=== PATIENT | female | born 1940 | race Caucasian/White ===

== ENCOUNTER 2017-12-10 04:25 | Emergency (ER) | payer MEDICARE ==
[~2017-12-10] VITALS: Ht 165.1 cm; Wt 81.6 kg
--- NOTE | 2017-12-10 05:05 | PHYS DOC ---
Past Medical History Past Medical History: Diabetes-Type II, High Cholesterol, Hypertension Additional Past Medical Histor: alzheimer's Past Surgical History: No Surgical History Alcohol Use: None Drug Use: None Adult General Chief Complaint Chief Complaint: WRIST PAIN HPI HPI Patient is a 77 year old female with a past medical history of Alzheimer's disease, visual hallucinations, diabetes mellitus type 2, hyperlipidemia, hypertension who presents after a fall. Patient awoke from sleep and was having hallucinations as she had been having all night and attempted to get out of bed and fell. Patient denies hitting her head, or loss of consciousness. Patient denies vomiting or trouble with ambulation or change in mental status since the fall. The patient's daughter found the patient sitting next to the bed upright complaining of left wrist pain. Patient notes she has had constant sharp last wrist pain with a severity of 8 out of 10 since fall. Patient is unable to move the wrist due to pain. Patient denies any dizziness, headache, neck pain, chest pain, syncope, shortness of breath, abdominal pain, pleuritic pain, or extremity pain other than the left wrist. Review of Systems Review of Systems Constitutional: Denies fever or chills [] Eyes: Denies change in visual acuity, redness, or eye pain [] HENT: Denies nasal congestion or sore throat [] Respiratory: Denies cough or shortness of breath [] Cardiovascular: No additional information not addressed in HPI [] GI: Denies abdominal pain, nausea, vomiting, bloody stools or diarrhea [] : Denies dysuria or hematuria [] Musculoskeletal: Denies back pain or joint pain [] Integument: Denies rash or skin lesions [] Neurologic: Denies headache, focal weakness or sensory changes [] Endocrine: Denies polyuria or polydipsia [] Complete systems were reviewed and found to be within normal limits, except as documented in this note. Family History Family History Noncontributory Current Medications Current Medications Current Medications Medications (Trade) Dose Ordered Sig/Fredrick Start Time Stop Time Status Last Admin Dose Admin Etomidate (Amidate) 10 mg 1X ONCE 12/10/17 05:30 12/10/17 05:31 DC Fentanyl Citrate (Fentanyl 2ml Vial) 100 mcg 1X ONCE 12/10/17 05:30 12/10/17 05:31 DC 12/10/17 05:48 100 MCG Sodium Chloride 1,000 ml @ 1,000 mls/hr 1X ONCE 12/10/17 05:30 12/10/17 06:29 DC 12/10/17 05:33 1,000 MLS/HR Allergies Allergies Allergies Coded Allergies Type Severity Reaction Last Updated Verified No Known Drug Allergies 12/10/17 No Physical Exam Physical Exam Constitutional: Well developed, well nourished, no acute distress, non-toxic appearance. [] HENT: Normocephalic, atraumatic, oropharynx moist, no oral exudates, nose normal. [] Eyes: PERRL, EOMI, conjunctiva normal, no discharge. [] Neck: Normal range of motion, no tenderness, supple, no meningismus. [] Cardiovascular:Heart rate regular rhythm, systolic murmur[] Lungs & Thorax: Bilateral breath sounds clear to auscultation [] Abdomen: Bowel sounds normal, soft, no tenderness. [] Skin: Warm, dry, no erythema, no rash. [] Back: No tenderness, no CVA tenderness. [] Extremities: Left wrist mildly edematous, decreased range of motion due to pain , left snuffbox tenderness. Mild tenderness in base of the second through fourth metacarpal bones. No tenderness in any fingers of left hand. Patient neurovascularly intact in the left hand. Patient able to move all digits of left hand. Right upper extremity and bilateral lower extremities full painful range of motion with intact sensation, normal perfusion, normal muscle strength. [] Neurologic: Alert and oriented X 3, normal motor function, normal sensory function, no focal deficits noted. [] Psychologic: Affect normal, mood normal. [] Current Patient Data Vital Signs Vital Signs Date Time Temp Pulse Resp B/P (MAP) Pulse Ox O2 Delivery O2 Flow Rate FiO2 12/10/17 05:48 18 96 Room Air 12/10/17 04:25 98.3 76 153/70 (97) 98.3 EKG EKG [] Radiology/Procedures Radiology/Procedures [] Course & Med Decision Making Course & Med Decision Making Pertinent Labs and Imaging studies reviewed. (See chart for details) [] Dragon Disclaimer Dragon Disclaimer This electronic medical record was generated, in whole or in part, using a voice recognition dictation system. Departure Departure Impression: Primary Impression: Distal radius fracture, left Disposition: 01 HOME, SELF-CARE Condition: STABLE Referrals: CHAS STACY MD (PCP) MENDY SANZ MD Patient Instructions: Radius Fracture with Rehab-SportsMed, Sedation, Moderate , Adult Scripts Acetaminophen With Codeine (TYLENOL WITH CODEINE #3 TABLET) 1 Each Tablet 1 TAB PO PRN Q6HRS PRN for PAIN, #14 TAB Prov: PERCY QUISPE DO 12/10/17 Problem Qualifiers Primary Impression: Distal radius fracture, left Encounter type: initial encounter Fracture type: closed Fracture morphology : unspecified fracture morphology Qualified Codes: S52.502A - Unspecified fracture of the lower end of left radius, initial encounter for closed fracture PERCY QUISPE DO Dec 10, 2017 05:05
[2017-12-10] MEDS ORDERED: IV NORMAL SALINE 1000ML BAG 1,000 ML IV ONE (05:30)
[2017-12-10] MEDS ORDERED: fentaNYL PF VIAL 100 MCG/2 ML VIAL IV ONE (05:30)
[2017-12-10] MEDS ORDERED: ETOMIDATE 20 MG/10 ML VIAL. IV ONE (05:30)
[2017-12-10] MEDS ORDERED: ACET-704 PO (06:44)
[2017-12-10 07:15] VITALS: BP 135/61
--- NOTE | 2017-12-10 07:40 | RAD ---
Portable left wrist, 3 views, 12/10/2017: HISTORY: Fall, wrist pain The bony structures are demineralized. There is a comminuted, impacted fracture of the distal left radius there is mild dorsal displacement and angulation of the distal fracture fragments. A fracture line involves the articular surface of the distal radius. There is a nondisplaced ulnar styloid fracture, probably recent. The carpal bones are intact. IMPRESSION: 1. Comminuted fracture of the distal left radius with intra-articular extension. 2. Ulnar styloid fracture. Electronically signed by: Dudley Escalera MD (12/10/2017 7:37 AM) [facility]
--- NOTE | 2017-12-10 07:42 | RAD ---
Left forearm, 2 views, 12/10/2017: HISTORY: Postreduction evaluation Comparison is made to the wrist exam of earlier in the day. A radiopaque splint is now in place compromising bony detail. Alignment at the fracture site has improved. There is mild residual dorsal angulation of the distal fracture fragments. The ulnar styloid fracture is slightly displaced. Electronically signed by: Dudley Escalera MD (12/10/2017 7:39 AM) [facility]
== END 2017-12-10 07:55 | disposition home or self-care (01) ==
LOC: ER 04:25
DX: S52.502A Unspecified fracture of the lower end of left radius, initial encounter for closed fracture (principal); E78.00 Pure hypercholesterolemia, unspecified; I10 Essential (primary) hypertension; G30.9 Alzheimer's disease, unspecified; F02.80 Dementia in other diseases classified elsewhere, unspecified severity, without behavioral disturbance, psychotic disturbance, mood disturbance, and anxiety; E78.5 Hyperlipidemia, unspecified; E11.8 Type 2 diabetes mellitus with unspecified complications; W06.XXXA Fall from bed, initial encounter; Y93.89 Activity, other specified; Y92.89 Other specified places as the place of occurrence of the external cause; Y99.8 Other external cause status
CPT/HCPCS: 25605; 73090; 73110; 96374; 99285; J3010; J7030; 99152

== ENCOUNTER 2018-07-24 11:56 | Inpatient (IN) | payer MEDICARE ==
[~2018-07-24] VITALS: Ht 167.6 cm; Wt 82.3 kg
[~2018-07-24 11:56] MED LIST: ACET-704 PO
[2018-07-24] MEDS ORDERED: IV NORMAL SALINE 1000ML BAG 1,000 ML IV ONE (12:15)
[2018-07-24 12:49] LABS: BASO % 1 % (0-3); EOS # 0.2 x10^3/uL (0.0-0.7); EOS % 4 % (0-3); HEMATOCRIT 34.2 % (36.0-47.0); LYMPH # 0.9 x10^3/uL (1.0-4.8); LYMPH % 17 % (24-48); MEAN CORPUSCULAR HEMOGLOBIN 29 pg (25-35); MEAN CORPUSCULAR HGB CONC 32 g/dL (31-37); MEAN CORPUSCULAR VOLUME 90 fL (79-100); MONO # 0.6 x10^3/uL (0.0-1.1); MONO % 13 % (0-9); NEUT # 3.3 x10^3uL (1.8-7.7); NEUT % 65 % (31-73); PLATELET COUNT 204 x10^3/uL (140-400); RED BLOOD COUNT 3.78 x10^6/uL (3.50-5.40); RED CELL DISTRIBUTION WIDTH 16.8 % (11.5-14.5)
[2018-07-24 12:51] LABS: BILIRUBIN,URINE NEGATIVE (NEG); CLARITY,URINE CLEAR; COLOR,URINE YELLOW; NITRITE,URINE NEGATIVE (NEG); PH,URINE 7.5; PROTEIN,URINE 100 mg/dL (NEG-TRACE)
[2018-07-24] MEDS ORDERED: fentaNYL PF VIAL 100 MCG/2 ML VIAL IV ONE (13:00)
[2018-07-24 13:01] LABS: CALCIUM 9.3 mg/dL (8.5-10.1); CREATININE 1.6 mg/dL (0.6-1.0); POTASSIUM 4.7 mmol/L (3.5-5.1)
[2018-07-24 13:05] LABS: SQUAMOUS EPITHELIAL CELL,UR FEW /LPF
[2018-07-24 13:06] LABS: BACTERIA,URINE 0 /HPF (0-FEW); HYALINE CASTS, URINE MODERATE /HPF; RBC,URINE >40 /HPF (0-2); WBC,URINE 0 /HPF (0-4)
[2018-07-24 13:07] LABS: ALBUMIN 3.7 g/dL (3.4-5.0); ALBUMIN/GLOBULIN RATIO 0.8 (1.0-1.7); TOTAL BILIRUBIN 0.5 mg/dL (0.2-1.0); TOTAL PROTEIN 8.1 g/dL (6.4-8.2)
[2018-07-24] MEDS: MEROPENEM 1 GM in IV NORMAL SALINE 100ML 100 ML IV SCH (14:03)
--- NOTE | 2018-07-24 14:09 | RAD ---
EXAM: Head CT without contrast. HISTORY: Confusion. TECHNIQUE: Computed tomographic images of the head were obtained without contrast. *One or more of the following individualized dose reduction techniques were utilized for this examination: 1. Automated exposure control. 2. Adjustment of the mA and/or kV according to patient size. 3. Use of iterative reconstruction technique. COMPARISON: 03/05/2015. FINDINGS: There is no acute or subacute extra-axial or intraparenchymal hemorrhage. There is no mass effect or midline shift. There is no hydrocephalus. There are areas of decreased attenuation within the cerebral white matter, nonspecific and likely related to chronic small vessel disease. There is fluid within the left mastoid air cells. The paranasal sinuses and orbits are unremarkable. No suspicious calvarial lesion is seen. IMPRESSION: 1. No acute intracranial finding. Note is made that MRI is more sensitive for acute infarction. 2. Decreased attenuation within the cerebral white matter, likely due to chronic small vessel disease. Electronically signed by: Yanna Marinelli MD (07/24/2018 2:06 PM) [facility]
[2018-07-24] MEDS ORDERED: fentaNYL PF VIAL 100 MCG/2 ML VIAL IV PRN (14:30)
[2018-07-24] MEDS ORDERED: ONDANSETRON PF 4 MG/2 ML VIAL. IV PRN (14:30)
--- NOTE | 2018-07-24 14:30 | PDOC1 ---
History and Physical Date of Admission Date of Admission DATE: 07/24/18 TIME: 14:30 Identification/Chief Complaint Chief Complaint Patient is a 78 year old female who presents with altered level of consciousness is been worsening over the past day. The patient was being treated for UTI on Rocephin while awaiting results of her urine culture. She was gradually worsening over the past week. Her primary care provider, Dr. Darren herron, called and gave report to the emergency department. The patient's daughter brought her to the emergency department for further evaluation and treatment. They deny fever, nausea or vomiting. The patient does have dementia but has worsened from her baseline and today has been nonverbal. was able to talk to daughter in er room Past Medical History Past Medical History Past Medical History Past Medical History: Diabetes-Type II, High Cholesterol, Hypertension Additional Past Medical Histor: alzheimer's Past Surgical History: No Surgical History Alcohol Use: None Drug Use: None family hx obesity Family History Family History: Diabetes, High Cholestrol, Hypertension Social History Smoke: No ALCOHOL: none Drugs: None Current Medications Current Medications Current Medications Sodium Chloride 1,000 ml @ 1,000 mls/hr 1X ONCE IV Last administered on 07/24/18at 12:37; Start 07/24/18 at 12:15; Stop 07/24/18 at 13:14; Status DC Fentanyl Citrate (Fentanyl 2ml Vial) 50 mcg 1X ONCE IV Last administered on 07/24/18at 13:05; Start 07/24/18 at 13:00; Stop 07/24/18 at 13:04; Status DC Meropenem 1 gm/ Sodium Chloride 100 ml @ 200 mls/hr Q12H IV Last administered on 07/24/18at 14:03; Start 07/24/18 at 14:00 Ondansetron HCl (Zofran) 4 mg PRN Q8HRS PRN IV NAUSEA/VOMITING; Start 07/24/18 at 14:30; Stop 07/25/18 at 14:29 Fentanyl Citrate (Fentanyl 2ml Vial) 50 mcg PRN Q1HR PRN IV PAIN; Start 07/24/18 at 14:30; Stop 07/25/18 at 14:29 Sodium Chloride 1,000 ml @ 125 mls/hr Q8H IV ; Start 07/24/18 at 14:20; Stop 07/25/18 at 14:19 Active Scripts Active Tylenol With Codeine #3 Tablet (Acetaminophen/Codeine Phosphate) 1 Each Tablet 1 Tab PO PRN Q6HRS PRN Allergies Allergies: Coded Allergies: No Known Drug Allergies (Unverified , 12/10/17) ROS Review of System Review of Systems Review of Systems Constitutional: Denies fever or chills [] Eyes: Denies change in visual acuity, redness, or eye pain [] HENT: Denies nasal congestion or sore throat [] Respiratory: Denies cough or shortness of breath [] Cardiovascular: No additional information not addressed in HPI [] GI: Denies abdominal pain, nausea, vomiting, bloody stools or diarrhea [] : See history of present illness Musculoskeletal: Denies back pain or joint pain [] Integument: Denies rash or skin lesions [] Neurologic: Denies headache, focal weakness or sensory changes [] Endocrine: Denies polyuria or polydipsia [] 14 pt systems were reviewed and found to be within normal limits, except as documented, daughter is interperter in er room Physical Exam Physical Exam Physical Exam Physical Exam Constitutional: Well developed, well nourished, mild acute distress, non-toxic appearance. [] Neck: Normal range of motion, no tenderness, supple, no stridor. [] Cardiovascular:Heart rate regular rhythm, no murmur [] Lungs & Thorax: Bilateral breath sounds clear to auscultation [] Abdomen: Bowel sounds normal, soft, no tenderness, no masses, no pulsatile masses. [] Skin: Warm, dry, no erythema, no rash. [] Back: No tenderness, no CVA tenderness. [] Extremities: No tenderness, no cyanosis, no clubbing, ROM intact, no edema. [] Neurologic: normal motor function, normal sensory function, no focal deficits noted. [] Psychologic: Affect normal, judgement poor, mood anxious. [] Breasts: Not examined Abdomen: Normal bowel sounds, Soft Rectal Exam: not examined Neuro: Cranial nerves 3-12 NL Vitals Vitals Vital Signs Date Time Temp Pulse Resp B/P (MAP) Pulse Ox O2 Delivery O2 Flow Rate FiO2 07/24/18 13:05 20 96 Room Air 07/24/18 12:00 98.2 78 125/85 (98) 98.2 Labs Labs Laboratory Tests Test 07/24/18 12:25 White Blood Count 5.0 x10^3/uL (4.0-11.0) Red Blood Count 3.78 x10^6/uL (3.50-5.40) Hemoglobin 11.0 g/dL (12.0-15.5) Hematocrit 34.2 % (36.0-47.0) Mean Corpuscular Volume 90 fL (79-100) Mean Corpuscular Hemoglobin 29 pg (25-35) Mean Corpuscular Hemoglobin Concent 32 g/dL (31-37) Red Cell Distribution Width 16.8 % (11.5-14.5) Platelet Count 204 x10^3/uL (140-400) Neutrophils (%) (Auto) 65 % (31-73) Lymphocytes (%) (Auto) 17 % (24-48) Monocytes (%) (Auto) 13 % (0-9) Eosinophils (%) (Auto) 4 % (0-3) Basophils (%) (Auto) 1 % (0-3) Neutrophils # (Auto) 3.3 x10^3uL (1.8-7.7) Lymphocytes # (Auto) 0.9 x10^3/uL (1.0-4.8) Monocytes # (Auto) 0.6 x10^3/uL (0.0-1.1) Eosinophils # (Auto) 0.2 x10^3/uL (0.0-0.7) Basophils # (Auto) 0.0 x10^3/uL (0.0-0.2) Urine Collection Type U cath Urine Color Yellow Urine Clarity Clear Urine pH 7.5 Urine Specific [place] 1.020 Urine Protein 100 mg/dL (NEG-TRACE) Urine Glucose (UA) Negative mg/dL (NEG) Urine Ketones (Stick) Negative mg/dL (NEG) Urine Blood Large (NEG) Urine Nitrite Negative (NEG) Urine Bilirubin Negative (NEG) Urine Urobilinogen Dipstick 1.0 mg/dL (0.2 mg/dL) Urine Leukocyte Esterase Trace (NEG) Urine RBC >40 /HPF (0-2) Urine WBC 0 /HPF (0-4) Urine Squamous Epithelial Cells Few /LPF Urine Bacteria 0 /HPF (0-FEW) Urine Hyaline Casts Moderate /HPF Urine Mucus Slight /LPF Sodium Level 137 mmol/L (136-145) Potassium Level 4.7 mmol/L (3.5-5.1) Chloride Level 99 mmol/L (98-107) Carbon Dioxide Level 32 mmol/L (21-32) Anion Gap 6 (6-14) Blood Urea Nitrogen 35 mg/dL (7-20) Creatinine 1.6 mg/dL (0.6-1.0) Estimated GFR (Cockcroft-Gault) 31.0 BUN/Creatinine Ratio 22 (6-20) Glucose Level 243 mg/dL (70-99) Lactic Acid Level 1.2 mmol/L (0.4-2.0) Calcium Level 9.3 mg/dL (8.5-10.1) Total Bilirubin 0.5 mg/dL (0.2-1.0) Aspartate Amino Transf (AST/SGOT) 18 U/L (15-37) Alanine Aminotransferase (ALT/SGPT) 20 U/L (14-59) Alkaline Phosphatase 90 U/L (46-116) Total Protein 8.1 g/dL (6.4-8.2) Albumin 3.7 g/dL (3.4-5.0) Albumin/Globulin Ratio 0.8 (1.0-1.7) Laboratory Tests Test 07/24/18 12:25 White Blood Count 5.0 x10^3/uL (4.0-11.0) Red Blood Count 3.78 x10^6/uL (3.50-5.40) Hemoglobin 11.0 g/dL (12.0-15.5) Hematocrit 34.2 % (36.0-47.0) Mean Corpuscular Volume 90 fL (79-100) Mean Corpuscular Hemoglobin 29 pg (25-35) Mean Corpuscular Hemoglobin Concent 32 g/dL (31-37) Red Cell Distribution Width 16.8 % (11.5-14.5) Platelet Count 204 x10^3/uL (140-400) Neutrophils (%) (Auto) 65 % (31-73) Lymphocytes (%) (Auto) 17 % (24-48) Monocytes (%) (Auto) 13 % (0-9) Eosinophils (%) (Auto) 4 % (0-3) Basophils (%) (Auto) 1 % (0-3) Neutrophils # (Auto) 3.3 x10^3uL (1.8-7.7) Lymphocytes # (Auto) 0.9 x10^3/uL (1.0-4.8) Monocytes # (Auto) 0.6 x10^3/uL (0.0-1.1) Eosinophils # (Auto) 0.2 x10^3/uL (0.0-0.7) Basophils # (Auto) 0.0 x10^3/uL (0.0-0.2) Urine Collection Type U cath Urine Color Yellow Urine Clarity Clear Urine pH 7.5 Urine Specific [place] 1.020 Urine Protein 100 mg/dL (NEG-TRACE) Urine Glucose (UA) Negative mg/dL (NEG) Urine Ketones (Stick) Negative mg/dL (NEG) Urine Blood Large (NEG) Urine Nitrite Negative (NEG) Urine Bilirubin Negative (NEG) Urine Urobilinogen Dipstick 1.0 mg/dL (0.2 mg/dL) Urine Leukocyte Esterase Trace (NEG) Urine RBC >40 /HPF (0-2) Urine WBC 0 /HPF (0-4) Urine Squamous Epithelial Cells Few /LPF Urine Bacteria 0 /HPF (0-FEW) Urine Hyaline Casts Moderate /HPF Urine Mucus Slight /LPF Sodium Level 137 mmol/L (136-145) Potassium Level 4.7 mmol/L (3.5-5.1) Chloride Level 99 mmol/L (98-107) Carbon Dioxide Level 32 mmol/L (21-32) Anion Gap 6 (6-14) Blood Urea Nitrogen 35 mg/dL (7-20) Creatinine 1.6 mg/dL (0.6-1.0) Estimated GFR (Cockcroft-Gault) 31.0 BUN/Creatinine Ratio 22 (6-20) Glucose Level 243 mg/dL (70-99) Lactic Acid Level 1.2 mmol/L (0.4-2.0) Calcium Level 9.3 mg/dL (8.5-10.1) Total Bilirubin 0.5 mg/dL (0.2-1.0) Aspartate Amino Transf (AST/SGOT) 18 U/L (15-37) Alanine Aminotransferase (ALT/SGPT) 20 U/L (14-59) Alkaline Phosphatase 90 U/L (46-116) Total Protein 8.1 g/dL (6.4-8.2) Albumin 3.7 g/dL (3.4-5.0) Albumin/Globulin Ratio 0.8 (1.0-1.7) Images Images SEX: F EXAM STATUS: REG ER ORD. PHYSICIAN: ALISSA WILLETT APRN REASON: confusion PROCEDURE: CT HEAD WO CONTRAST EXAM: Head CT without contrast. HISTORY: Confusion. TECHNIQUE: Computed tomographic images of the head were obtained without contrast. *One or more of the following individualized dose reduction techniques were utilized for this examination: 1. Automated exposure control. 2. Adjustment of the mA and/or kV according to patient size. 3. Use of iterative reconstruction technique. COMPARISON: 03/05/2015. FINDINGS: There is no acute or subacute extra-axial or intraparenchymal hemorrhage. There is no mass effect or midline shift. There is no hydrocephalus. There are areas of decreased attenuation within the cerebral white matter, nonspecific and likely related to chronic small vessel disease. There is fluid within the left mastoid air cells. The paranasal sinuses and orbits are unremarkable. No suspicious calvarial lesion is seen. IMPRESSION: 1. No acute intracranial finding. Note is made that MRI is more sensitive for acute infarction. 2. Decreased attenuation within the cerebral white matter, likely due to chronic small vessel disease. Electronically signed by: Yanna Watkins MD (07/24/2018 2:06 PM) [facility] DICTATED and SIGNED BY: YANNA WATKINS MD DATE: 07/24/18 1406 VTE Prophylaxis Ordered VTE Prophylaxis Devices: Yes VTE Pharmacological Prophylaxi: Yes Assessment/Plan Assessment/Plan IMPRESSION 1. Acute altered mental status 2. acute metabolic encephalopathy sec UTI 3. UTI 4. hx dementia PLAN CT HEAD IV ANTIBIOTICS, meropenum ID CONSULT DVT PROPHYLAXIS blood cult urine culture dvt prophylaxis MAI PRUITT MD Jul 24, 2018 14:30
--- NOTE | 2018-07-24 15:34 | PHYS DOC ---
Past Medical History Past Medical History: Diabetes-Type II, High Cholesterol, Hypertension Additional Past Medical Histor: alzheimer's (ALISSA WILLETT APRN) Past Surgical History: No Surgical History (ALISSA WILLETT APRN) Alcohol Use: None Drug Use: None (ALISSA WILLETT APRN) Adult General Chief Complaint Chief Complaint: ALTERED MENTAL STATUS HPI HPI Patient is a 78 year old female who presents with altered level of consciousness is been worsening over the past day. The patient was being treated for UTI on Rocephin while awaiting results of her urine culture. She was gradually worsening over the past week. Her primary care provider, Dr. Venkatesh benjamin, called and gave report to the emergency department. The patient's daughter brought her to the emergency department for further evaluation and treatment. They deny fever, nausea or vomiting. The patient does have dementia but has worsened from her baseline and today has been nonverbal. (ALISSA WILLETT APRN) Review of Systems Review of Systems Constitutional: Denies fever or chills [] Eyes: Denies change in visual acuity, redness, or eye pain [] HENT: Denies nasal congestion or sore throat [] Respiratory: Denies cough or shortness of breath [] Cardiovascular: No additional information not addressed in HPI [] GI: Denies abdominal pain, nausea, vomiting, bloody stools or diarrhea [] : See history of present illness Musculoskeletal: Denies back pain or joint pain [] Integument: Denies rash or skin lesions [] Neurologic: Denies headache, focal weakness or sensory changes [] Endocrine: Denies polyuria or polydipsia [] All other systems were reviewed and found to be within normal limits, except as documented in this note. (ALISSA WILLETT APRN) Current Medications Current Medications Current Medications Medications (Trade) Dose Ordered Sig/Fredrick Start Time Stop Time Status Last Admin Dose Admin Fentanyl Citrate (Fentanyl 2ml Vial) 50 mcg 1X ONCE 07/24/18 13:00 07/24/18 13:04 DC 07/24/18 13:05 50 MCG Meropenem 1 gm/ Sodium Chloride 100 ml @ 200 mls/hr Q12H 07/24/18 14:00 07/25/18 13:14 200 MLS/HR Sodium Chloride 1,000 ml @ 1,000 mls/hr 1X ONCE 07/24/18 12:15 07/24/18 13:14 DC 07/24/18 12:37 1,000 MLS/HR (AMARI PHAM MD) Allergies Allergies Allergies Coded Allergies Type Severity Reaction Last Updated Verified No Known Drug Allergies 12/10/17 No (AMARI PHAM MD) Physical Exam Physical Exam Constitutional: Well developed, well nourished, no acute distress, non-toxic appearance. [] Neck: Normal range of motion, no tenderness, supple, no stridor. [] Cardiovascular:Heart rate regular rhythm, no murmur [] Lungs & Thorax: Bilateral breath sounds clear to auscultation [] Abdomen: Bowel sounds normal, soft, no tenderness, no masses, no pulsatile mas ses. [] Skin: Warm, dry, no erythema, no rash. [] Back: No tenderness, no CVA tenderness. [] Extremities: No tenderness, no cyanosis, no clubbing, ROM intact, no edema. [] Neurologic: Alert and oriented X 3, normal motor function, normal sensory function, no focal deficits noted. [] Psychologic: Affect normal, judgement normal, mood normal. [] (ALISSA WILLETT APRN) Current Patient Data Vital Signs Vital Signs Date Time Temp Pulse Resp B/P (MAP) Pulse Ox O2 Delivery O2 Flow Rate FiO2 07/24/18 14:13 82 16 98 07/24/18 13:05 Room Air 07/24/18 12:00 98.2 125/85 (98) 98.2 (AMARI PHAM MD) Lab Values Laboratory Tests Test 07/24/18 12:25 White Blood Count 5.0 x10^3/uL (4.0-11.0) Red Blood Count 3.78 x10^6/uL (3.50-5.40) Hemoglobin 11.0 g/dL (12.0-15.5) L Hematocrit 34.2 % (36.0-47.0) L Mean Corpuscular Volume 90 fL (79-100) Mean Corpuscular Hemoglobin 29 pg (25-35) Mean Corpuscular Hemoglobin Concent 32 g/dL (31-37) Red Cell Distribution Width 16.8 % (11.5-14.5) H Platelet Count 204 x10^3/uL (140-400) Neutrophils (%) (Auto) 65 % (31-73) Lymphocytes (%) (Auto) 17 % (24-48) L Monocytes (%) (Auto) 13 % (0-9) H Eosinophils (%) (Auto) 4 % (0-3) H Basophils (%) (Auto) 1 % (0-3) Neutrophils # (Auto) 3.3 x10^3uL (1.8-7.7) Lymphocytes # (Auto) 0.9 x10^3/uL (1.0-4.8) L Monocytes # (Auto) 0.6 x10^3/uL (0.0-1.1) Eosinophils # (Auto) 0.2 x10^3/uL (0.0-0.7) Basophils # (Auto) 0.0 x10^3/uL (0.0-0.2) Urine Collection Type U cath Urine Color Yellow Urine Clarity Clear Urine pH 7.5 Urine Specific [place] 1.020 Urine Protein 100 mg/dL (NEG-TRACE) Urine Glucose (UA) Negative mg/dL (NEG) Urine Ketones (Stick) Negative mg/dL (NEG) Urine Blood Large (NEG) Urine Nitrite Negative (NEG) Urine Bilirubin Negative (NEG) Urine Urobilinogen Dipstick 1.0 mg/dL (0.2 mg/dL) Urine Leukocyte Esterase Trace (NEG) Urine RBC >40 /HPF (0-2) Urine WBC 0 /HPF (0-4) Urine Squamous Epithelial Cells Few /LPF Urine Bacteria 0 /HPF (0-FEW) Urine Hyaline Casts Moderate /HPF Urine Mucus Slight /LPF Sodium Level 137 mmol/L (136-145) Potassium Level 4.7 mmol/L (3.5-5.1) Chloride Level 99 mmol/L (98-107) Carbon Dioxide Level 32 mmol/L (21-32) Anion Gap 6 (6-14) Blood Urea Nitrogen 35 mg/dL (7-20) H Creatinine 1.6 mg/dL (0.6-1.0) H Estimated GFR (Cockcroft-Gault) 31.0 BUN/Creatinine Ratio 22 (6-20) H Glucose Level 243 mg/dL (70-99) H Lactic Acid Level 1.2 mmol/L (0.4-2.0) Calcium Level 9.3 mg/dL (8.5-10.1) Total Bilirubin 0.5 mg/dL (0.2-1.0) Aspartate Amino Transferase (AST) 18 U/L (15-37) Alanine Aminotransferase (ALT) 20 U/L (14-59) Alkaline Phosphatase 90 U/L (46-116) Total Protein 8.1 g/dL (6.4-8.2) Albumin 3.7 g/dL (3.4-5.0) Albumin/Globulin Ratio 0.8 (1.0-1.7) L Laboratory Tests 07/24/18 12:25 Laboratory Tests 07/24/18 12:25 Microbiology 07/24/18 Blood Culture - Preliminary, Resulted NO GROWTH AFTER 1 DAY (AMARI PHAM MD) EKG EKG [] (ALISSA WILLETT APRN) Radiology/Procedures Radiology/Procedures []PATIENT: MARLENE ARORAOUNT: [id number]#: [id number] : 1940 LOCATION: ER AGE: 78 SEX: F EXAM STATUS: REG ER ORD. PHYSICIAN: ALISSA WILLETT APRN REASON: confusion PROCEDURE: CT HEAD WO CONTRAST EXAM: Head CT without contrast. HISTORY: Confusion. TECHNIQUE: Computed tomographic images of the head were obtained without contrast. *One or more of the following individualized dose reduction techniques were utilized for this examination: 1. Automated exposure control. 2. Adjustment of the mA and/or kV according to patient size. 3. Use of iterative reconstruction technique. COMPARISON: 03/05/2015. FINDINGS: There is no acute or subacute extra-axial or intraparenchymal hemorrhage. There is no mass effect or midline shift. There is no hydrocephalus. There are areas of decreased attenuation within the cerebral white matter, nonspecific and likely related to chronic small vessel disease. There is fluid within the left mastoid air cells. The paranasal sinuses and orbits are unremarkable. No suspicious calvarial lesion is seen. IMPRESSION: 1. No acute intracranial finding. Note is made that MRI is more sensitive for acute infarction. 2. Decreased attenuation within the cerebral white matter, likely due to chronic small vessel disease. Electronically signed by: Yanna Watkins MD (07/24/2018 2:06 PM) [id number] DICTATED and SIGNED BY: YANNA WATKINS MD DATE: 07/24/18 2011 (ALISSA WILLETT APRN) Course & Med Decision Making Course & Med Decision Making Pertinent Labs and Imaging studies reviewed. (See chart for details) []The patient's CT was negative for an acute cause of her symptoms. If she is still positive for a UTI. Her lab results were faxed to the emergency department and her urine is susceptible to all of the carbapenems. She has been started on Merrem in the emergency department. She has been admitted to Dr. Owusu's service. (ALISSA WILLETT APRN) Course & Med Decision Making Staff Physician Addendum: I was working in the ER during the course of this patient's visit. I was available for consultation as needed, but I was not directly involved in the care of this patient. (AMARI PHAM MD) Dragon Disclaimer Dragon Disclaimer This electronic medical record was generated, in whole or in part, using a voice recognition dictation system. (ALISSA WILLETT APRN) Departure Departure Impression: Primary Impression: Altered level of consciousness Additional Impression: Urinary tract infection Disposition: ADMITTED INPATIENT Admitting Physician: Joseph Duncan (ALISSA WILLETT APRN) Condition: GOOD Problem Qualifiers ALISSA WILLETT APRN Jul 24, 2018 15:34 AMARI PHAM MD Jul 25, 2018 18:37
[2018-07-24 15:55] VITALS: BP 133/64
[2018-07-24] MEDS: IV NORMAL SALINE 1000ML BAG 1,000 ML IV SCH ×2 (16:25→22:20)
[2018-07-24] MEDS ORDERED: PIOG15TA42 PO (16:40)
[2018-07-24] MEDS ORDERED: LISI-334 PO (16:41)
[2018-07-24] MEDS ORDERED: DONE10TA7 PO (16:42)
[2018-07-24] MEDS ORDERED: RANI300C PO (16:43)
[2018-07-24] MEDS ORDERED: MEMA10TA PO (16:45)
[2018-07-24] MEDS ORDERED: QUET25TA5 PO (16:47)
[2018-07-24] MEDS ORDERED: FURO20TA3 PO (16:49)
[2018-07-24] MEDS ORDERED: OMEG1CAP38 PO (16:51)
[2018-07-24] MEDS ORDERED: POTA10TA12 PO (16:54)
[2018-07-24] MEDS ORDERED: SIMV20TA3 PO (16:54)
[2018-07-24] MEDS ORDERED: CITA40TA5 PO (16:56)
[2018-07-24] MEDS ORDERED: ASPI-612 PO (16:57)
--- NOTE | 2018-07-24 19:10 | NUR ---
Patient Jessy Zhao 78/F admitted from ED due to complicated UTI. She arrived at the unit at 1550 accompanied by family members. Patient is awake, oriented to self, forgetful, denies any pain. IVF started at 125mL/hr, call light placed within reach. We'll continue to monitor.
[2018-07-24 19:50] VITALS: BP 131/59
[2018-07-24] MEDS ORDERED: DEXTROSE 50% 25 GM / 50ML DISP.SYRIN. IV PRN (20:45)
[2018-07-24] MEDS: SIMVASTATIN 20 MG TABLET PO SCH (21:35)
[2018-07-24] MEDS: MEMANTINE 10 MG TABLET. PO SCH (21:35)
[2018-07-24] MEDS: QUEtiapine 25 MG TABLET. PO SCH (21:35)
[2018-07-24] MEDS: OMEGA-3 FATTY ACIDS/FISH OIL 1,000 MG CAPSULE. PO SCH (21:36)
[2018-07-24] MEDS: CITALOPRAM 20 MG TABLET. PO SCH (22:30)
[2018-07-24 23:13] VITALS: BP 111/39
[2018-07-25] MEDS: MEROPENEM 1 GM in IV NORMAL SALINE 100ML 100 ML IV SCH ×2 (02:01→13:14)
--- NOTE | 2018-07-25 02:58 | PDOC ---
PROGRESS NOTES Subjective Subjective PATIENT INDICATES SHE IS FEELING BETTER. DAUGHTER AT BEDSIDE AND NOTES THAT PATIENT IS DEFINITELY IMPROVED IN BOTH ALERTNESS, GAIT AND DEMENTIA BUT STILL NOT AT BASE LINE. DETERIORATION FROM BASELINE BEGAN Tuesday. DAUGHTER CALLED PATIENT'S PSYCHIATRIST AND ADVISED HER OF THE CHANGE. DR. SHAQUILLE CARRERA MD ADVISED DAUGHTER THAT SHE SHOULD CHECK PATIENT'S URINE WITH PCP. THAT IS HOW SHE ENDED UP IN OUR OFFICE FOR VISIT AND LAB ON 07/20/2018. PATIENT JUST SAW TV AD FOR HAMBURGER [employer] AND NOTED THAT SHE WAS HUNGRY AND WANTED A HAMBURGER (SHE HAS HAD ONLY CLEAR FLUIDS SINCE ADMISSION). COMPLAINING OF ITCHING OF RIGHT LATERAL THIGH AREA. VOICED NEED TO GO TO BATHROOM TO URINATE. Objective Objective Vital Signs Date Time Temp Pulse Resp B/P (MAP) Pulse Ox O2 Delivery O2 Flow Rate FiO2 07/24/18 23:13 98.2 77 18 111/39 (63) 96 Room Air 98.2 Intake and Output 07/25/18 06:59 Intake Total 1220 ml Output Total 300 ml Balance 920 ml Intake Oral 120 ml IV Total 1100 ml Output Urine Total 300 ml # Voids 2 PER ER NOTE PATIENT HAD 1 LITER OF FLUID IN ER AND NEW BAG HUNG PRIOR TO TRANSFER TO FLOOR. HAS THUS COMPLETED 2 LKITERS INDFUSED AND HAS NEW BAG HANGING- #3 BAG. Physical Exam Physical Exam SLEEPING WHEN I ENTERED ROOM, LOOKED IN NAD. AWAKENED SHORTLY AFTER MY DRESSING MACHINE OPERATOR AND I ENTERED AND BEGAN TALKING TO DAUGHTER. SHE GREETED ME ENTHUSIASTICALLY WELL GREETING DRESSING MACHINE OPERATOR. SHE RECOGNIZED BOTH OF US SPONTANEOUSLY. Abdomen: Normal bowel sounds, Soft, No tenderness Heart: Regular rate, Normal S1, Normal S2, Other (CALE GRADE 2 LEFT STERNAL BORDER) Extremities: No clubbing, No cyanosis, No edema, Normal pulses, No tenderness/swelling General: Alert, Cooperative, No acute distress, Other HEENT: Atraumatic, EOMI, Mucous membr. moist/pink Lungs: Clear to auscultation, Normal air movement, Other (SLIGHTLY DECREASED BREATH SOUNDS AT BASES.) MUSCULOSKELETAL: No joint tenderness, No muscular tenderness noted, Other (GAIT WAS UNSTEADY, HOLDING ON TO 2 PEOPLE WITH ONE OF US SPOTTING HER SHE WALKED TO BATHROOM FROM BED. SHUFFLED FEET SLIGHTLY. AFTER URINATING IN STOOL, STOOD UP AND THEN SAID SOMETHING ABOUT THE BABY COMING AND WENT LIMP -DAUGHTER GUIDED HER BACK ONTO THE STOOL AT ADVISE OF DRESSING MACHINE OPERATOR. DAUGHTER AND DRESSING MACHINE OPERATOR BROUGHT HER CHAIR WALKER TO BATHROOM AND HELPED HER TRANSFER ONTO THE CHAIR WALKER AND THEN PATIENT WAS WHEELED TO HER BEDSIDE. PATIENT STOOD UP ON HER OWN BUT SEEMED WEAKER THAN JUST MOMENTS EARLIER, AND PAITNET THEN PLOPPED BACKWARDS ONTO BED. DAUGHTER AND DRESSING MACHINE OPERATOR MOVED HER INTO PROPER POSITION ONCE PATIENT WAS IN BED. PATIENT SEEMED TO MOVE ALL EXTREMITIES EQUALLY WELL) Neck: Supple, No JVD, No thyromegaly, No LAD Neuro: Sensation intact, Cranial nerves 3-12 NL, Other (GAIT ABNORMAL NOTED ABOVE. TONE RELATIVELY NORMAL THEN MUSCLES BECOME LIMP DIRING EPISODE NOTED ) Psych/Mental Status: Other (MENTAL STATUS IMPROVED BUT NOT AT B ASELINE. ORIENTED TO PERSONS IN ROOM BUT ALSO HAS VISUAL AND AUDITORY HALLUCINATIONS OF HER FAMILY MEMBERS AND FRIENDS OFF AND ON THROUGH OUT DAY. ALSO VOICED CONCERN FOR HER GRANDDAUGHTER "GIVING NEXT DOOR"- NOT REALLY OCCURRING, GRANDDAUGHTER NOT EVEN IN HOSPITAL TODAY AND SHE IS DEFINITELY NOT .) Skin: No rashes (AREA SHE IS SCRATCHING ON LATERAL RIGHT THIGH IS CLEAR OF ANY RASH OR DRYNESS.), No significant lesion COMMENT PATIENT ALSO HAS DIAGNOSIS OF CHF. Diagnosis DIAGNOSIS 1. CHANGE IN MENTAL STATUS, LETHARGY, INCREASED HALLUCINATION, AUDITORY AND VISUAL. AND LOC EARLY THIS AM (REASON FOR ER VISIT.) 2. E.COLI UTI ON CULTURE TAKEN Tuesday RESISTENT TO ROCEPHIN AND SENSITIVE TO NUMEROUS IV ANTIBIOTICS- PLEASE SEE RESULTS SENT TO ER FROM THE OFFICE. 3. DEHYDRATION- SECONDARY TO POOR PO INTAKE- (HGB TuesdayJULY 20 AT FIRST 24 HOURS OF HER CHANGE IN MENTAL STATUS WAS 9.4/HCT WAS 30.0. MCHC 31.3. HGB IN ER WAS 11.0 TODAY). 4. ALZHEIMER DEMENTIA WITH lNCREASED HALLUCINATIONS BOTH AUDITORY AND VISUAL SINCE LAST TuesdayJULY 19, 5. HISTORY OF CHF. 6. DIABETES MELLITUS TYPE 2 ( HGB A1C DONE 07/20/18 WAS 8.9) 7. HYPERTENSION-STABLE 8. CHRONIC RENAL INSUFFICIENCY AGGRAVATED BY HER DECREASED FLUIDS- BUN/CREATININE WAS 26/1.22 ON 07/20/18 AND TODAY WAS 35/1.6 IN ER) HYPERTENSION: Benign hypertension HEART FAILURE: CHF (CHRONIC, STABLE AT PRESENT-WILL DECREASE IV FLUID RATE.) DIABETES: Type II (Uncontrolled) RENAL FAILURE: Chronic ANEMIA: Chronic diseases (ESRD), Other SEPSIS: Escherichia coli ( URINE CULTURE FROM 07/20/2018 GREW E.COLI RESISTANT TO ROCEPHIN - REPORTED THIS AM. TREATED 07/20, 07/21/ AND 07/22 WITH 1 GRAM ROCEPHIN PENDING CULTURE RESULTS.) SEVERE SEPSIS: Encephalopathy Assessment Assessment Problems Medical Problems: (1) Altered level of consciousness Status: Acute (2) Urinary tract infection Status: Acute Plan Plan of Care SEE ORDERS. STARTED ON MEROPENUM IV IN ER BASED ON URINE CULTURE RESULTS FROM 07/20/2018. SECOND DOSE GIVEN AT 2AM. CONSULT REQUESTED FROM INFECTIOUS DISEASE AND NEUROLOGY. Comment Review of Relevant I have reviewed the following items ld (where applicable) has been applied. Labs Laboratory Tests Test 07/24/18 12:25 07/24/18 20:32 White Blood Count 5.0 x10^3/uL (4.0-11.0) Red Blood Count 3.78 x10^6/uL (3.50-5.40) Hemoglobin 11.0 g/dL (12.0-15.5) Hematocrit 34.2 % (36.0-47.0) Mean Corpuscular Volume 90 fL (79-100) Mean Corpuscular Hemoglobin 29 pg (25-35) Mean Corpuscular Hemoglobin Concent 32 g/dL (31-37) Red Cell Distribution Width 16.8 % (11.5-14.5) Platelet Count 204 x10^3/uL (140-400) Neutrophils (%) (Auto) 65 % (31-73) Lymphocytes (%) (Auto) 17 % (24-48) Monocytes (%) (Auto) 13 % (0-9) Eosinophils (%) (Auto) 4 % (0-3) Basophils (%) (Auto) 1 % (0-3) Neutrophils # (Auto) 3.3 x10^3uL (1.8-7.7) Lymphocytes # (Auto) 0.9 x10^3/uL (1.0-4.8) Monocytes # (Auto) 0.6 x10^3/uL (0.0-1.1) Eosinophils # (Auto) 0.2 x10^3/uL (0.0-0.7) Basophils # (Auto) 0.0 x10^3/uL (0.0-0.2) Urine Collection Type U cath Urine Color Yellow Urine Clarity Clear Urine pH 7.5 Urine Specific [place] 1.020 Urine Protein 100 mg/dL (NEG-TRACE) Urine Glucose (UA) Negative mg/dL (NEG) Urine Ketones (Stick) Negative mg/dL (NEG) Urine Blood Large (NEG) Urine Nitrite Negative (NEG) Urine Bilirubin Negative (NEG) Urine Urobilinogen Dipstick 1.0 mg/dL (0.2 mg/dL) Urine Leukocyte Esterase Trace (NEG) Urine RBC >40 /HPF (0-2) Urine WBC 0 /HPF (0-4) Urine Squamous Epithelial Cells Few /LPF Urine Bacteria 0 /HPF (0-FEW) Urine Hyaline Casts Moderate /HPF Urine Mucus Slight /LPF Sodium Level 137 mmol/L (136-145) Potassium Level 4.7 mmol/L (3.5-5.1) Chloride Level 99 mmol/L (98-107) Carbon Dioxide Level 32 mmol/L (21-32) Anion Gap 6 (6-14) Blood Urea Nitrogen 35 mg/dL (7-20) Creatinine 1.6 mg/dL (0.6-1.0) Estimated GFR (Cockcroft-Gault) 31.0 BUN/Creatinine Ratio 22 (6-20) Glucose Level 243 mg/dL (70-99) Lactic Acid Level 1.2 mmol/L (0.4-2.0) Calcium Level 9.3 mg/dL (8.5-10.1) Total Bilirubin 0.5 mg/dL (0.2-1.0) Aspartate Amino Transf (AST/SGOT) 18 U/L (15-37) Alanine Aminotransferase (ALT/SGPT) 20 U/L (14-59) Alkaline Phosphatase 90 U/L (46-116) Total Protein 8.1 g/dL (6.4-8.2) Albumin 3.7 g/dL (3.4-5.0) Albumin/Globulin Ratio 0.8 (1.0-1.7) Glucose (Fingerstick) 179 mg/dL (70-99) Laboratory Tests Test 07/24/18 12:25 07/24/18 20:32 White Blood Count 5.0 x10^3/uL (4.0-11.0) Red Blood Count 3.78 x10^6/uL (3.50-5.40) Hemoglobin 11.0 g/dL (12.0-15.5) Hematocrit 34.2 % (36.0-47.0) Mean Corpuscular Volume 90 fL (79-100) Mean Corpuscular Hemoglobin 29 pg (25-35) Mean Corpuscular Hemoglobin Concent 32 g/dL (31-37) Red Cell Distribution Width 16.8 % (11.5-14.5) Platelet Count 204 x10^3/uL (140-400) Neutrophils (%) (Auto) 65 % (31-73) Lymphocytes (%) (Auto) 17 % (24-48) Monocytes (%) (Auto) 13 % (0-9) Eosinophils (%) (Auto) 4 % (0-3) Basophils (%) (Auto) 1 % (0-3) Neutrophils # (Auto) 3.3 x10^3uL (1.8-7.7) Lymphocytes # (Auto) 0.9 x10^3/uL (1.0-4.8) Monocytes # (Auto) 0.6 x10^3/uL (0.0-1.1) Eosinophils # (Auto) 0.2 x10^3/uL (0.0-0.7) Basophils # (Auto) 0.0 x10^3/uL (0.0-0.2) Urine Collection Type U cath Urine Color Yellow Urine Clarity Clear Urine pH 7.5 Urine Specific [place] 1.020 Urine Protein 100 mg/dL (NEG-TRACE) Urine Glucose (UA) Negative mg/dL (NEG) Urine Ketones (Stick) Negative mg/dL (NEG) Urine Blood Large (NEG) Urine Nitrite Negative (NEG) Urine Bilirubin Negative (NEG) Urine Urobilinogen Dipstick 1.0 mg/dL (0.2 mg/dL) Urine Leukocyte Esterase Trace (NEG) Urine RBC >40 /HPF (0-2) Urine WBC 0 /HPF (0-4) Urine Squamous Epithelial Cells Few /LPF Urine Bacteria 0 /HPF (0-FEW) Urine Hyaline Casts Moderate /HPF Urine Mucus Slight /LPF Sodium Level 137 mmol/L (136-145) Potassium Level 4.7 mmol/L (3.5-5.1) Chloride Level 99 mmol/L (98-107) Carbon Dioxide Level 32 mmol/L (21-32) Anion Gap 6 (6-14) Blood Urea Nitrogen 35 mg/dL (7-20) Creatinine 1.6 mg/dL (0.6-1.0) Estimated GFR (Cockcroft-Gault) 31.0 BUN/Creatinine Ratio 22 (6-20) Glucose Level 243 mg/dL (70-99) Lactic Acid Level 1.2 mmol/L (0.4-2.0) Calcium Level 9.3 mg/dL (8.5-10.1) Total Bilirubin 0.5 mg/dL (0.2-1.0) Aspartate Amino Transf (AST/SGOT) 18 U/L (15-37) Alanine Aminotransferase (ALT/SGPT) 20 U/L (14-59) Alkaline Phosphatase 90 U/L (46-116) Total Protein 8.1 g/dL (6.4-8.2) Albumin 3.7 g/dL (3.4-5.0) Albumin/Globulin Ratio 0.8 (1.0-1.7) Glucose (Fingerstick) 179 mg/dL (70-99) Medications Current Medications Sodium Chloride 1,000 ml @ 1,000 mls/hr 1X ONCE IV Last administered on 07/24/18at 12:37; Start 07/24/18 at 12:15; Stop 07/24/18 at 13:14; Status DC Fentanyl Citrate (Fentanyl 2ml Vial) 50 mcg 1X ONCE IV Last administered on 07/24/18at 13:05; Start 07/24/18 at 13:00; Stop 07/24/18 at 13:04; Status DC Meropenem 1 gm/ Sodium Chloride 100 ml @ 200 mls/hr Q12H IV Last administered on 07/24/18at 14:03; Start 07/24/18 at 14:00 Ondansetron HCl (Zofran) 4 mg PRN Q8HRS PRN IV NAUSEA/VOMITING; Start 07/24/18 at 14:30; Stop 07/25/18 at 14:29 Fentanyl Citrate (Fentanyl 2ml Vial) 50 mcg PRN Q1HR PRN IV PAIN; Start 07/24/18 at 14:30; Stop 07/25/18 at 14:29 Sodium Chloride 1,000 ml @ 125 mls/hr Q8H IV Last administered on 07/24/18at 22:20; Start 07/24/18 at 14:20; Stop 07/25/18 at 14:19 Aspirin (Ecotrin) 81 mg DAILY PO ; Start 07/25/18 at 09:00 Furosemide (Lasix) 40 mg DAILY PO ; Start 07/25/18 at 09:00 Lisinopril (Prinivil) 20 mg DAILY PO ; Start 07/25/18 at 09:00 Potassium Chloride (Klor-Con) 10 meq DAILY PO ; Start 07/25/18 at 09:00 Citalopram Hydrobromide (CeleXA) 40 mg DAILY PO ; Start 07/25/18 at 09:00; Stop 07/25/18 at 09:00; Status DC Donepezil HCl (Aricept) 10 mg DAILY PO ; Start 07/25/18 at 09:00 Memantine (Namenda) 10 mg BID PO Last administered on 07/24/18at 21:35; Start 07/24/18 at 21:00 Fish Oil (Fish Oil) 1,000 mg BID PO Last administered on 07/24/18at 21:36; Start 07/24/18 at 21:00 Pioglitazone HCl (Actos) 15 mg DAILY PO ; Start 07/25/18 at 09:00 Quetiapine Fumarate (SEROquel) 12.5 mg BID PO Last administered on 07/24/18at 21:35; Start 07/24/18 at 21:00 Famotidine (Pepcid) 20 mg DAILY PO ; Start 07/25/18 at 09:00 Simvastatin (Zocor) 20 mg HS PO Last administered on 07/24/18at 21:35; Start 07/24/18 at 21:00 Insulin Human Lispro (HumaLOG) 0-7 UNITS TIDWMEALS SQ ; Start 07/25/18 at 08:00 Dextrose (Dextrose 50%-Water Syringe) 12.5 gm PRN Q15MIN PRN IV SEE COMMENTS; Start 07/24/18 at 20:45 Citalopram Hydrobromide (CeleXA) 40 mg HS PO Last administered on 07/24/18at 22:30; Start 07/24/18 at 22:30 Active Scripts Active Tylenol With Codeine #3 Tablet (Acetaminophen/Codeine Phosphate) 1 Each Tablet 1 Tab PO PRN Q6HRS PRN Reported Aspirin Ec (Aspirin) 81 Mg Tablet. 81 Tab PO DAILY Citalopram Hbr (Citalopram Hydrobromide) 40 Mg Tablet 1 Tab PO DAILY Simvastatin 20 Mg Tablet 1 Tab PO QHS Potassium Chloride 10 Meq Tab.sr.24h 10 Meq PO DAILY [place] 3 Fish Oil Softgel ([place]-3 Fatty Acids/Fish Oil) 1 Each Capsule.dr 1 Each PO BID Furosemide 20 Mg Tablet 2 Tab PO DAILY Seroquel (Quetiapine Fumarate) 25 Mg Tablet 0.5 Tab PO BID Namenda (Memantine Hcl) 10 Mg Tablet 1 Tab PO BID Ranitidine Hcl 300 Mg Capsule 1 Cap PO DAILY Donepezil Hcl 10 Mg Tablet 10 Tab PO DAILY Lisinopril 20 Mg Tablet 1 Tab PO DAILY Actos (Pioglitazone Hcl) 15 Mg Tablet 1 Tab PO DAILY Vitals/I & O Vital Sign - Last 24 Hours 07/24/18 07/24/18 07/24/18 07/24/18 12:00 12:43 13:05 13:13 Temp 98.2 98.2 Pulse 78 76 82 Resp 20 16 20 16 B/P (MAP) 125/85 (98) Pulse Ox 99 100 96 95 O2 Delivery Room Air Room Air 07/24/18 07/24/18 07/24/18 07/24/18 13:59 14:13 14:43 15:50 Pulse 84 82 82 Resp 16 16 16 Pulse Ox 97 98 97 O2 Delivery Room Air 07/24/18 07/24/18 07/24/18 07/24/18 15:55 19:50 20:00 23:13 Temp 97.7 98.9 98.2 97.7 98.9 98.2 Pulse 83 82 77 Resp 14 20 18 B/P (MAP) 133/64 (87) 131/59 (83) 111/39 (63) Pulse Ox 96 96 96 O2 Delivery Room Air Room Air Room Air Room Air Intake and Output 07/24/18 07/24/18 07/25/18 14:59 22:59 06:59 Intake Total 1000 ml 220 ml Output Total 300 ml Balance 1000 ml -[address] OF HEAD REVIEWED-NO ACUTE CHANGES. WILL ORDER CHEST PA AND LATERAL. CHAS STACY MD Jul 25, 2018 02:58
[2018-07-25 07:05] VITALS: BP 158/67
[2018-07-25] MEDS: IV NORMAL SALINE 1000ML BAG 1,000 ML IV SCH (07:46)
[2018-07-25] MEDS: INSULIN LISPRO 300 UNITS/3 ML INSULN.PEN. SQ SCH ×3 (08:00→18:30)
[2018-07-25 08:09] LABS: BASO % 1 % (0-3); EOS # 0.2 x10^3/uL (0.0-0.7); EOS % 5 % (0-3); HEMATOCRIT 29.2 % (36.0-47.0); HEMOGLOBIN 9.6 g/dL (12.0-15.5); LYMPH # 0.9 x10^3/uL (1.0-4.8); LYMPH % 23 % (24-48); MEAN CORPUSCULAR HEMOGLOBIN 30 pg (25-35); MEAN CORPUSCULAR HGB CONC 33 g/dL (31-37); MEAN CORPUSCULAR VOLUME 91 fL (79-100); MONO # 0.5 x10^3/uL (0.0-1.1); MONO % 13 % (0-9); NEUT # 2.4 x10^3uL (1.8-7.7); NEUT % 58 % (31-73); PLATELET COUNT 172 x10^3/uL (140-400); RED BLOOD COUNT 3.21 x10^6/uL (3.50-5.40); RED CELL DISTRIBUTION WIDTH 16.9 % (11.5-14.5)
[2018-07-25 08:28] LABS: CALCIUM 8.4 mg/dL (8.5-10.1); CREATININE 1.2 mg/dL (0.6-1.0); GFR 43.2; POTASSIUM 4.2 mmol/L (3.5-5.1)
[2018-07-25] MEDS ORDERED: CITALOPRAM 20 MG TABLET. PO SCH (09:00)
[2018-07-25] MEDS: PIOGLITAZONE 15 MG TABLET. PO SCH (10:02)
[2018-07-25] MEDS: OMEGA-3 FATTY ACIDS/FISH OIL 1,000 MG CAPSULE. PO SCH ×2 (10:03→20:40)
[2018-07-25] MEDS: ASPIRIN ENTERIC COATED 81 MG TABLET.DR. PO SCH (10:03)
[2018-07-25] MEDS: POTASSIUM CHLORIDE 10 MEQ TABLET.ER. PO SCH (10:04)
[2018-07-25] MEDS: LISINOPRIL 20 MG TABLET PO SCH (10:05)
[2018-07-25] MEDS: QUEtiapine 25 MG TABLET. PO SCH ×2 (10:06→20:40)
[2018-07-25] MEDS: DONEPEZIL HCL 10 MG TABLET. PO SCH (10:06)
[2018-07-25] MEDS: FAMOTIDINE 20 MG TABLET. PO SCH (10:06)
[2018-07-25] MEDS: FUROSEMIDE 40 MG TABLET. PO SCH (10:07)
[2018-07-25] MEDS: MEMANTINE 10 MG TABLET. PO SCH ×2 (10:07→20:41)
[2018-07-25 11:45] VITALS: BP 123/58
--- NOTE | 2018-07-25 11:53 | RAD ---
Chest, 2 views, 07/25/2018: HISTORY: Cough, weakness Comparison is made to a study from 02/11/2015. The heart has increased in size and is now at the upper limits of normal. There is calcific plaquing of the aorta. Mitral annular calcifications are present. The pulmonary vascularity is normal. There is blunting of the posterior costophrenic angles compatible with a small amount of pleural fluid. No pulmonary consolidation is seen. Mild multilevel degenerative change is evident in the spine. IMPRESSION: 1. Borderline cardiomegaly with aortic atherosclerosis. 2. Small bilateral pleural effusions have developed. Electronically signed by: Dudley Escalera MD (07/25/2018 11:50 AM) [facility]
--- NOTE | 2018-07-25 12:07 | PDOC ---
Infectious Disease Note Vital Sign Vital Signs Vital Signs Date Time Temp Pulse Resp B/P (MAP) Pulse Ox O2 Delivery O2 Flow Rate FiO2 07/25/18 10:05 81 158/67 07/25/18 07:05 97.4 18 94 Room Air 97.4 Labs Lab Laboratory Tests Test 07/24/18 12:25 07/24/18 20:32 07/25/18 07:13 07/25/18 07:55 White Blood Count 5.0 x10^3/uL (4.0-11.0) 4.0 x10^3/uL (4.0-11.0) Red Blood Count 3.78 x10^6/uL (3.50-5.40) 3.21 x10^6/uL (3.50-5.40) Hemoglobin 11.0 g/dL (12.0-15.5) 9.6 g/dL (12.0-15.5) Hematocrit 34.2 % (36.0-47.0) 29.2 % (36.0-47.0) Mean Corpuscular Volume 90 fL (79-100) 91 fL (79-100) Mean Corpuscular Hemoglobin 29 pg (25-35) 30 pg (25-35) Mean Corpuscular Hemoglobin Concent 32 g/dL (31-37) 33 g/dL (31-37) Red Cell Distribution Width 16.8 % (11.5-14.5) 16.9 % (11.5-14.5) Platelet Count 204 x10^3/uL (140-400) 172 x10^3/uL (140-400) Neutrophils (%) (Auto) 65 % (31-73) 58 % (31-73) Lymphocytes (%) (Auto) 17 % (24-48) 23 % (24-48) Monocytes (%) (Auto) 13 % (0-9) 13 % (0-9) Eosinophils (%) (Auto) 4 % (0-3) 5 % (0-3) Basophils (%) (Auto) 1 % (0-3) 1 % (0-3) Neutrophils # (Auto) 3.3 x10^3uL (1.8-7.7) 2.4 x10^3uL (1.8-7.7) Lymphocytes # (Auto) 0.9 x10^3/uL (1.0-4.8) 0.9 x10^3/uL (1.0-4.8) Monocytes # (Auto) 0.6 x10^3/uL (0.0-1.1) 0.5 x10^3/uL (0.0-1.1) Eosinophils # (Auto) 0.2 x10^3/uL (0.0-0.7) 0.2 x10^3/uL (0.0-0.7) Basophils # (Auto) 0.0 x10^3/uL (0.0-0.2) 0.0 x10^3/uL (0.0-0.2) Urine Collection Type U cath Urine Color Yellow Urine Clarity Clear Urine pH 7.5 Urine Specific [place] 1.020 Urine Protein 100 mg/dL (NEG-TRACE) Urine Glucose (UA) Negative mg/dL (NEG) Urine Ketones (Stick) Negative mg/dL (NEG) Urine Blood Large (NEG) Urine Nitrite Negative (NEG) Urine Bilirubin Negative (NEG) Urine Urobilinogen Dipstick 1.0 mg/dL (0.2 mg/dL) Urine Leukocyte Esterase Trace (NEG) Urine RBC >40 /HPF (0-2) Urine WBC 0 /HPF (0-4) Urine Squamous Epithelial Cells Few /LPF Urine Bacteria 0 /HPF (0-FEW) Urine Hyaline Casts Moderate /HPF Urine Mucus Slight /LPF Sodium Level 137 mmol/L (136-145) 143 mmol/L (136-145) Potassium Level 4.7 mmol/L (3.5-5.1) 4.2 mmol/L (3.5-5.1) Chloride Level 99 mmol/L (98-107) 107 mmol/L (98-107) Carbon Dioxide Level 32 mmol/L (21-32) 25 mmol/L (21-32) Anion Gap 6 (6-14) 11 (6-14) Blood Urea Nitrogen 35 mg/dL (7-20) 24 mg/dL (7-20) Creatinine 1.6 mg/dL (0.6-1.0) 1.2 mg/dL (0.6-1.0) Estimated GFR (Cockcroft-Gault) 31.0 43.2 BUN/Creatinine Ratio 22 (6-20) Glucose Level 243 mg/dL (70-99) 134 mg/dL (70-99) Lactic Acid Level 1.2 mmol/L (0.4-2.0) Calcium Level 9.3 mg/dL (8.5-10.1) 8.4 mg/dL (8.5-10.1) Total Bilirubin 0.5 mg/dL (0.2-1.0) Aspartate Amino Transf (AST/SGOT) 18 U/L (15-37) Alanine Aminotransferase (ALT/SGPT) 20 U/L (14-59) Alkaline Phosphatase 90 U/L (46-116) Total Protein 8.1 g/dL (6.4-8.2) Albumin 3.7 g/dL (3.4-5.0) Albumin/Globulin Ratio 0.8 (1.0-1.7) Glucose (Fingerstick) 179 mg/dL (70-99) 134 mg/dL (70-99) TY-Jkc-[id number]-Type Natriuretic Peptide 2947 pg/mL (0-449) Objective Assessment ? UTI Encephalopathy Dementia Dehydration Plan Plan of Care fluids d/c antibiotics LULI Ag MD Jul 25, 2018 12:07
--- NOTE | 2018-07-25 12:16 | PDOC2 ---
NEUROLOGY CONSULT Date of Admission Date of Admission DATE: 07/25/18 TIME: 12:11 Reason for Consult Reason for Consult: Altered mental status Referring Physician Referring Physician: Dr. Hopson Source Source: Caregiver (Daughter), Chart review, Patient History of Present Illness History of Present Illness The patient is an 78-year-old right-handed female with a diagnosis of Alzheimer's dementia who comes in with altered mental status. She is thought to have a urinary tract infection although cultures are negative. She has improved with hydration and antibiotics and daughter says that she is at baseline. She does follow with a psychiatrist for dementia. There is no history of stroke, seizure, or head injury. Past Medical History Cardiovascular: HTN, Hyperlipidemia CENTRAL NERVOUS SYSTEM: Dementia ( Alzheimer's) Psych: Depression Renal/: UTI Endocrine: Diabetes Past Surgical History Past Surgical History: Other ( left wrist fracture) Social History Social History , lives with daughter, no alcohol or tobacco Current Medications Current Medications Current Medications Sodium Chloride 1,000 ml @ 1,000 mls/hr 1X ONCE IV Last administered on 07/24/18at 12:37; Start 07/24/18 at 12:15; Stop 07/24/18 at 13:14; Status DC Fentanyl Citrate (Fentanyl 2ml Vial) 50 mcg 1X ONCE IV Last administered on 07/24/18at 13:05; Start 07/24/18 at 13:00; Stop 07/24/18 at 13:04; Status DC Meropenem 1 gm/ Sodium Chloride 100 ml @ 200 mls/hr Q12H IV Last administered on 07/25/18at 02:01; Start 07/24/18 at 14:00 Ondansetron HCl (Zofran) 4 mg PRN Q8HRS PRN IV NAUSEA/VOMITING; Start 07/24/18 at 14:30; Stop 07/25/18 at 14:29 Fentanyl Citrate (Fentanyl 2ml Vial) 50 mcg PRN Q1HR PRN IV PAIN; Start 07/24/18 at 14:30; Stop 07/25/18 at 14:29 Sodium Chloride 1,000 ml @ 75 mls/hr [id number] IV Last administered on 07/24/18at 22:20; Start 07/24/18 at 14:20; Stop 07/25/18 at 14:19 Aspirin (Ecotrin) 81 mg DAILY PO Last administered on 07/25/18 10:03; Start 07/25/18 at 09:00 Furosemide (Lasix) 40 mg DAILY PO Last administered on 07/25/18 10:07; Start 07/25/18 at 09:00 Lisinopril (Prinivil) 20 mg DAILY PO Last administered on 07/25/18 10:05; Start 07/25/18 at 09:00 Potassium Chloride (Klor-Con) 10 meq DAILY PO Last administered on 07/25/18 10:04; Start 07/25/18 at 09:00 Citalopram Hydrobromide (CeleXA) 40 mg DAILY PO ; Start 07/25/18 at 09:00; Stop 07/25/18 at 09:00; Status DC Donepezil HCl (Aricept) 10 mg DAILY PO Last administered on 07/25/18 10:06; Start 07/25/18 at 09:00 Memantine (Namenda) 10 mg BID PO Last administered on 07/25/18 10:07; Start 07/24/18 at 21:00 Fish Oil (Fish Oil) 1,000 mg BID PO Last administered on 07/25/18 10:03; Start 07/24/18 at 21:00 Pioglitazone HCl (Actos) 15 mg DAILY PO Last administered on 07/25/18 10:02; Start 07/25/18 at 09:00 Quetiapine Fumarate (SEROquel) 12.5 mg BID PO Last administered on 07/25/18 10:06; Start 07/24/18 at 21:00 Famotidine (Pepcid) 20 mg DAILY PO Last administered on 07/25/18 10:06; Start 07/25/18 at 09:00 Simvastatin (Zocor) 20 mg HS PO Last administered on 07/24/18 21:35; Start 07/24/18 at 21:00 Insulin Human Lispro (HumaLOG) 0-7 UNITS TIDWMEALS SQ ; Start 07/25/18 at 08:00 Dextrose (Dextrose 50%-Water Syringe) 12.5 gm PRN Q15MIN PRN IV SEE COMMENTS; Start 07/24/18 at 20:45 Citalopram Hydrobromide (CeleXA) 40 mg HS PO Last administered on 4/29/19at 22:30; Start 07/24/18 at 22:30 Active Scripts Active Tylenol With Codeine #3 Tablet (Acetaminophen/Codeine Phosphate) 1 Each Tablet 1 Tab PO PRN Q6HRS PRN Reported Aspirin Ec (Aspirin) 81 Mg Tablet.dr 81 Tab PO DAILY Citalopram Hbr (Citalopram Hydrobromide) 40 Mg Tablet 1 Tab PO DAILY Simvastatin 20 Mg Tablet 1 Tab PO QHS Potassium Chloride 10 Meq Tab.sr.24h 10 Meq PO DAILY [place] 3 Fish Oil Softgel ([place]-3 Fatty Acids/Fish Oil) 1 Each Capsule.dr 1 Each PO BID Furosemide 20 Mg Tablet 2 Tab PO DAILY Seroquel (Quetiapine Fumarate) 25 Mg Tablet 0.5 Tab PO BID Namenda (Memantine Hcl) 10 Mg Tablet 1 Tab PO BID Ranitidine Hcl 300 Mg Capsule 1 Cap PO DAILY Donepezil Hcl 10 Mg Tablet 10 Tab PO DAILY Lisinopril 20 Mg Tablet 1 Tab PO DAILY Actos (Pioglitazone Hcl) 15 Mg Tablet 1 Tab PO DAILY Allergies Allergies: Coded Allergies: No Known Drug Allergies (Unverified , 12/10/17) ROS Review of System Negative for fever, chills, weight loss, shortness of breath, chest pain, indigestion, hematochezia, melena, and dysuria. Full 14-point review of systems is negative. Physical Exam Physical Examination General: Well-developed, well-nourished femalein no acute distress HEENT: Normocephalic andatraumatic. Temporal arteriespulsatile and nontender. Neck: Supple without bruit, no meningismus Musculoskeletal: Stability:see neurologic. Gait exam:see neurologic. Tone:see neurologic.Strength:see neurologic. Neurological: Mental Status: orientation, memory, attention span/concentration, language, fund of knowledge: she speaks only Georgian, does not know the name of the hospital, does not know the date, does not know the name of the president. Cranial Nerves:Pupils equal and reactive to light, extraocular movements areintact, visual wilson are full to confrontation. Facial sensation is normal. There is no facial asymmetry. Vestibulo-ocular reflex is intact. Palate elevates and tongue protrudes in midline. All other cranial related problems are negative except as mentioned before.Reflexes:2+ and symmetric with flexor plantar responses. Motor:5/5 strength with normal tone and bulk. Coordination:Finger-nose finger and peky-sm-hbsk testing are normal. Rapid alternating movements and fine finger movements are intact. Gait: just a few steps, normal. Sensory:Normal pinprick, vibration, light touch, proprioception. Vitals VITALS Vital Signs Date Time Temp Pulse Resp B/P (MAP) Pulse Ox O2 Delivery O2 Flow Rate FiO2 07/25/18 11:45 99.1 72 18 123/58 (79) 95 Room Air 99.1 Labs Labs Laboratory Tests Test 07/24/18 12:25 07/24/18 20:32 07/25/18 07:13 07/25/18 07:55 White Blood Count 5.0 x10^3/uL (4.0-11.0) 4.0 x10^3/uL (4.0-11.0) Red Blood Count 3.78 x10^6/uL (3.50-5.40) 3.21 x10^6/uL (3.50-5.40) Hemoglobin 11.0 g/dL (12.0-15.5) 9.6 g/dL (12.0-15.5) Hematocrit 34.2 % (36.0-47.0) 29.2 % (36.0-47.0) Mean Corpuscular Volume 90 fL (79-100) 91 fL (79-100) Mean Corpuscular Hemoglobin 29 pg (25-35) 30 pg (25-35) Mean Corpuscular Hemoglobin Concent 32 g/dL (31-37) 33 g/dL (31-37) Red Cell Distribution Width 16.8 % (11.5-14.5) 16.9 % (11.5-14.5) Platelet Count 204 x10^3/uL (140-400) 172 x10^3/uL (140-400) Neutrophils (%) (Auto) 65 % (31-73) 58 % (31-73) Lymphocytes (%) (Auto) 17 % (24-48) 23 % (24-48) Monocytes (%) (Auto) 13 % (0-9) 13 % (0-9) Eosinophils (%) (Auto) 4 % (0-3) 5 % (0-3) Basophils (%) (Auto) 1 % (0-3) 1 % (0-3) Neutrophils # (Auto) 3.3 x10^3uL (1.8-7.7) 2.4 x10^3uL (1.8-7.7) Lymphocytes # (Auto) 0.9 x10^3/uL (1.0-4.8) 0.9 x10^3/uL (1.0-4.8) Monocytes # (Auto) 0.6 x10^3/uL (0.0-1.1) 0.5 x10^3/uL (0.0-1.1) Eosinophils # (Auto) 0.2 x10^3/uL (0.0-0.7) 0.2 x10^3/uL (0.0-0.7) Basophils # (Auto) 0.0 x10^3/uL (0.0-0.2) 0.0 x10^3/uL (0.0-0.2) Urine Collection Type U cath Urine Color Yellow Urine Clarity Clear Urine pH 7.5 Urine Specific [place] 1.020 Urine Protein 100 mg/dL (NEG-TRACE) Urine Glucose (UA) Negative mg/dL (NEG) Urine Ketones (Stick) Negative mg/dL (NEG) Urine Blood Large (NEG) Urine Nitrite Negative (NEG) Urine Bilirubin Negative (NEG) Urine Urobilinogen Dipstick 1.0 mg/dL (0.2 mg/dL) Urine Leukocyte Esterase Trace (NEG) Urine RBC >40 /HPF (0-2) Urine WBC 0 /HPF (0-4) Urine Squamous Epithelial Cells Few /LPF Urine Bacteria 0 /HPF (0-FEW) Urine Hyaline Casts Moderate /HPF Urine Mucus Slight /LPF Sodium Level 137 mmol/L (136-145) 143 mmol/L (136-145) Potassium Level 4.7 mmol/L (3.5-5.1) 4.2 mmol/L (3.5-5.1) Chloride Level 99 mmol/L (98-107) 107 mmol/L (98-107) Carbon Dioxide Level 32 mmol/L (21-32) 25 mmol/L (21-32) Anion Gap 6 (6-14) 11 (6-14) Blood Urea Nitrogen 35 mg/dL (7-20) 24 mg/dL (7-20) Creatinine 1.6 mg/dL (0.6-1.0) 1.2 mg/dL (0.6-1.0) Estimated GFR (Cockcroft-Gault) 31.0 43.2 BUN/Creatinine Ratio 22 (6-20) Glucose Level 243 mg/dL (70-99) 134 mg/dL (70-99) Lactic Acid Level 1.2 mmol/L (0.4-2.0) Calcium Level 9.3 mg/dL (8.5-10.1) 8.4 mg/dL (8.5-10.1) Total Bilirubin 0.5 mg/dL (0.2-1.0) Aspartate Amino Transf (AST/SGOT) 18 U/L (15-37) Alanine Aminotransferase (ALT/SGPT) 20 U/L (14-59) Alkaline Phosphatase 90 U/L (46-116) Total Protein 8.1 g/dL (6.4-8.2) Albumin 3.7 g/dL (3.4-5.0) Albumin/Globulin Ratio 0.8 (1.0-1.7) Glucose (Fingerstick) 179 mg/dL (70-99) 134 mg/dL (70-99) PO-Kvy-B-Type Natriuretic Peptide 2947 pg/mL (0-449) Laboratory Tests Test 07/24/18 12:25 07/24/18 20:32 07/25/18 07:13 07/25/18 07:55 White Blood Count 5.0 x10^3/uL (4.0-11.0) 4.0 x10^3/uL (4.0-11.0) Red Blood Count 3.78 x10^6/uL (3.50-5.40) 3.21 x10^6/uL (3.50-5.40) Hemoglobin 11.0 g/dL (12.0-15.5) 9.6 g/dL (12.0-15.5) Hematocrit 34.2 % (36.0-47.0) 29.2 % (36.0-47.0) Mean Corpuscular Volume 90 fL (79-100) 91 fL (79-100) Mean Corpuscular Hemoglobin 29 pg (25-35) 30 pg (25-35) Mean Corpuscular Hemoglobin Concent 32 g/dL (31-37) 33 g/dL (31-37) Red Cell Distribution Width 16.8 % (11.5-14.5) 16.9 % (11.5-14.5) Platelet Count 204 x10^3/uL (140-400) 172 x10^3/uL (140-400) Neutrophils (%) (Auto) 65 % (31-73) 58 % (31-73) Lymphocytes (%) (Auto) 17 % (24-48) 23 % (24-48) Monocytes (%) (Auto) 13 % (0-9) 13 % (0-9) Eosinophils (%) (Auto) 4 % (0-3) 5 % (0-3) Basophils (%) (Auto) 1 % (0-3) 1 % (0-3) Neutrophils # (Auto) 3.3 x10^3uL (1.8-7.7) 2.4 x10^3uL (1.8-7.7) Lymphocytes # (Auto) 0.9 x10^3/uL (1.0-4.8) 0.9 x10^3/uL (1.0-4.8) Monocytes # (Auto) 0.6 x10^3/uL (0.0-1.1) 0.5 x10^3/uL (0.0-1.1) Eosinophils # (Auto) 0.2 x10^3/uL (0.0-0.7) 0.2 x10^3/uL (0.0-0.7) Basophils # (Auto) 0.0 x10^3/uL (0.0-0.2) 0.0 x10^3/uL (0.0-0.2) Urine Collection Type U cath Urine Color Yellow Urine Clarity Clear Urine pH 7.5 Urine Specific [place] 1.020 Urine Protein 100 mg/dL (NEG-TRACE) Urine Glucose (UA) Negative mg/dL (NEG) Urine Ketones (Stick) Negative mg/dL (NEG) Urine Blood Large (NEG) Urine Nitrite Negative (NEG) Urine Bilirubin Negative (NEG) Urine Urobilinogen Dipstick 1.0 mg/dL (0.2 mg/dL) Urine Leukocyte Esterase Trace (NEG) Urine RBC >40 /HPF (0-2) Urine WBC 0 /HPF (0-4) Urine Squamous Epithelial Cells Few /LPF Urine Bacteria 0 /HPF (0-FEW) Urine Hyaline Casts Moderate /HPF Urine Mucus Slight /LPF Sodium Level 137 mmol/L (136-145) 143 mmol/L (136-145) Potassium Level 4.7 mmol/L (3.5-5.1) 4.2 mmol/L (3.5-5.1) Chloride Level 99 mmol/L (98-107) 107 mmol/L (98-107) Carbon Dioxide Level 32 mmol/L (21-32) 25 mmol/L (21-32) Anion Gap 6 (6-14) 11 (6-14) Blood Urea Nitrogen 35 mg/dL (7-20) 24 mg/dL (7-20) Creatinine 1.6 mg/dL (0.6-1.0) 1.2 mg/dL (0.6-1.0) Estimated GFR (Cockcroft-Gault) 31.0 43.2 BUN/Creatinine Ratio 22 (6-20) Glucose Level 243 mg/dL (70-99) 134 mg/dL (70-99) Lactic Acid Level 1.2 mmol/L (0.4-2.0) Calcium Level 9.3 mg/dL (8.5-10.1) 8.4 mg/dL (8.5-10.1) Total Bilirubin 0.5 mg/dL (0.2-1.0) Aspartate Amino Transf (AST/SGOT) 18 U/L (15-37) Alanine Aminotransferase (ALT/SGPT) 20 U/L (14-59) Alkaline Phosphatase 90 U/L (46-116) Total Protein 8.1 g/dL (6.4-8.2) Albumin 3.7 g/dL (3.4-5.0) Albumin/Globulin Ratio 0.8 (1.0-1.7) Glucose (Fingerstick) 179 mg/dL (70-99) 134 mg/dL (70-99) GT-Drb-R-Type Natriuretic Peptide 2947 pg/mL (0-449) Images Images Head CT without contrast. There is no acute or subacute extra-axial or intraparenchymal hemorrhage. There is no mass effect or midline shift. There is no hydrocephalus. There are areas of decreased attenuation within the cerebral white matter, nonspecific and likely related to chronic small vessel disease. There is fluid within the left mastoid air cells. The paranasal sinuses and orbits are unremarkable. No suspicious calvarial lesion is seen. IMPRESSION: 1. No acute intracranial finding. Note is made that MRI is more sensitive for acute infarction. 2. Decreased attenuation within the cerebral white matter, likely due to chronic small vessel disease. Assessment/Plan Assessment/Plan Impression: Metabolic encephalopathy in the setting of possible urinary tract infection with underlying Alzheimer's dementia, patient is back to baseline according to daughter. I find no evidence of stroke, central nervous system infection, or ongoing seizure activity. Recommendations: No additional neurological studies needed Discharge to home when medically stable. I fully discussed with the patient's daughter. Thank you for letting me help with the patient's care. MALKA NAYAK MD Jul 25, 2018 12:16
[2018-07-25 15:00] VITALS: BP 111/50
[2018-07-25 19:00] VITALS: BP 132/58
[2018-07-25] MEDS: LACTOBACILLUS RHAMNOSUS GG 1 CAPSULE. PO SCH (20:40)
[2018-07-25] MEDS: SIMVASTATIN 20 MG TABLET PO SCH (20:40)
[2018-07-25] MEDS: CITALOPRAM 20 MG TABLET. PO SCH (20:41)
[2018-07-25 22:43] VITALS: BP 142/54
[2018-07-26] MEDS: MEROPENEM 1 GM in IV NORMAL SALINE 100ML 100 ML IV SCH ×2 (00:56→13:10)
[2018-07-26 03:07] VITALS: BP 146/54
[2018-07-26 07:00] VITALS: BP 121/49
--- NOTE | 2018-07-26 07:54 | CONS ---
DATE OF CONSULTATION: 07/25/2018 REQUESTING PHYSICIAN: Dr. Joseph Owusu. REASON FOR CONSULTATION: Change in mental status and possible UTI. HISTORY OF PRESENT ILLNESS: This is an 78-year-old female who has dementia, taken care of by family. Evidently about 3 or 4 days ago, the patient had change in mental status, lethargy and syncopal episode. The patient was seen in Dr. Hopson's office and a urine culture was done, which evidently showed multi-resistant E. coli; although, I cannot find the corresponding UA. Whether it was done or not, I do not know. The patient does not have any urinary symptoms; although, the patient does have dementia, so it is questionable that she is a reliable historian, but she had near syncopal episode and lethargy, hence then she was seen. She was given 3 days of IM Rocephin and then she was admitted for further management. The patient is currently alert, awake. The patient is able to smile and shake hand with me, but most of the communication is done by the daughter. According to daughter, she does not have any other complaints. She denies any nausea, vomiting, diarrhea, chest pain, shortness of breath, abdominal pain, urinary symptoms, bowel symptoms, fever, no other complaints. PAST MEDICAL HISTORY: Positive for dementia. The patient has hyperlipidemia, hypertension, diabetes. SOCIAL HISTORY: Negative for smoking, alcohol or illicit drug use. The patient is functional, meaning lives at home, able to walk, does talk, but cannot take care completely herself and the family takes care of her. ALLERGIES: No known drug allergies. CURRENT MEDICATIONS: The patient is on meropenem. REVIEW OF SYSTEMS: As per HPI, all other systems reviewed through the patient's daughter and are negative as I mentioned in HPI. PHYSICAL EXAMINATION: GENERAL: Awake female, not in distress. VITAL SIGNS: Stable, afebrile. HEENT: NAD. NECK: Supple, no JVP, no lymphadenopathy. LUNGS: Clear. HEART: S1, S2 regular. ABDOMEN: Benign. EXTREMITIES: No edema, cyanosis. SKIN: Unremarkable. NEUROLOGIC: Alert, awake, does move all the extremities, but mentation cannot be judged as she did not speak anything at the time of my interview with the patient and the patient's two daughters. LABORATORY DATA: White count is normal. Platelets are normal. BUN and creatinine on admission was 35 and 1.6 and lactic acid 1.2. The BUN and creatinine is improving today at 24 and 1.2. Urinalysis showed 0 wbc. Blood culture done yesterday, so far negative. The urine culture from Dr. Hopson's office reviewed which is E. coli multi-resistant, although, there was no UA done. Chest x-ray is showing bilateral small pleural effusion and cardiomegaly. IMPRESSION: 1. Encephalopathy, most likely from dehydration on top of dementia. 2. Dementia. 3. Acute renal failure from volume depletion. 4. Near syncopal episode from volume depletion. RECOMMENDATIONS: We will try to see if urinalysis was done at Dr. Hopson's office, but clearly urine here is normal. Antibiotic can be discontinued. Supportive care and hydration and we will continue to follow. Thank you very much, Dr. Owusu, for giving me the opportunity to participate in this patient's care. LULI CABRERA MD DR: KRISTY/pipe JOB#: [id number] / [id number]
[2018-07-26] MEDS: INSULIN LISPRO 300 UNITS/3 ML INSULN.PEN. SQ SCH ×4 (08:00→22:05)
--- NOTE | 2018-07-26 09:00 | NUR ---
LAI IS SLEEPING AT THIS TIME AND REFUSES TO AWAKEN. DAUGHTER AT BED. SHE DID AROUSE ENOUGH TO EAT SOME BREAKFAST BUT AT THIS TIME SHE IS ASLEEP. WILL HOLD MEDICATIONS UNTIL AWAKENS
[2018-07-26] MEDS: PIOGLITAZONE 15 MG TABLET. PO SCH (10:26)
[2018-07-26] MEDS: MEMANTINE 10 MG TABLET. PO SCH ×2 (10:26→20:39)
[2018-07-26] MEDS: LACTOBACILLUS RHAMNOSUS GG 1 CAPSULE. PO SCH ×2 (10:26→20:40)
[2018-07-26] MEDS: OMEGA-3 FATTY ACIDS/FISH OIL 1,000 MG CAPSULE. PO SCH ×2 (10:26→20:40)
[2018-07-26] MEDS: QUEtiapine 25 MG TABLET. PO SCH ×2 (10:26→20:40)
[2018-07-26] MEDS: CITALOPRAM 20 MG TABLET. PO SCH (10:26)
[2018-07-26] MEDS: POTASSIUM CHLORIDE 10 MEQ TABLET.ER. PO SCH (10:27)
[2018-07-26] MEDS: FUROSEMIDE 40 MG TABLET. PO SCH (10:27)
[2018-07-26] MEDS: LISINOPRIL 20 MG TABLET PO SCH (10:27)
[2018-07-26] MEDS: FAMOTIDINE 20 MG TABLET. PO SCH (10:27)
[2018-07-26] MEDS: DONEPEZIL HCL 10 MG TABLET. PO SCH (10:30)
[2018-07-26] MEDS: ASPIRIN ENTERIC COATED 81 MG TABLET.DR. PO SCH (10:33)
--- NOTE | 2018-07-26 10:53 | NUR ---
AWAKE. TOOK AM MEDICATIONS WITHOUT DIFFICULTY. DOES NOT SPEAK TO ME BUT SMILES ND WINKS AT ME. DAUGHTER REMAINS AT BEDSIDE; SHE REMAINS IN RECLINER.
--- NOTE | 2018-07-26 11:57 | PDOC ---
PROGRESS NOTES Assessment Problems Medical Problems: (1) Altered level of consciousness Status: Acute (2) Urinary tract infection Status: Acute Metabolic encephalopathy in the setting of possible urinary tract infection with underlying Alzheimer's dementia, patient is back to baseline according to daughter. I find no evidence of stroke, central nervous system infection, or ongoing seizure activity. Plan No additional neurological studies needed Discharge to home when medically stable.Daughter is not interested in intermediate unit, wants to take her home I fully discussed with the patient's daughter and son. Subjective No complaints Objective Vital Signs Date Time Temp Pulse Resp B/P (MAP) Pulse Ox O2 Delivery O2 Flow Rate FiO2 07/26/18 10:27 75 121/49 07/26/18 09:00 Room Air 07/26/18 07:00 98.9 18 99 98.9 Intake and Output 07/26/18 06:59 Intake Total 820 ml Balance 820 ml Intake Oral 820 ml # Voids 4 # Bowel Movements 1 PHYSICAL EXAM Alert. She thinks that I am her brother who is a physician. She does not note date or location. PERRL. EOMI. CN: no focal findings. Muscle tone: normal. Muscle strength: 5/5 DTR: 2+. Bilateral grasp reflexes Plantar reflex: flexor Gait: not examined in bed. Sensory exam: no abnormal findings. No cerebellar signs elicited. Review of Relevant I have reviewed the following items ld (where applicable) has been applied. Labs Laboratory Tests Test 07/24/18 12:25 07/24/18 20:32 07/25/18 07:13 07/25/18 07:55 White Blood Count 5.0 x10^3/uL (4.0-11.0) 4.0 x10^3/uL (4.0-11.0) Red Blood Count 3.78 x10^6/uL (3.50-5.40) 3.21 x10^6/uL (3.50-5.40) Hemoglobin 11.0 g/dL (12.0-15.5) 9.6 g/dL (12.0-15.5) Hematocrit 34.2 % (36.0-47.0) 29.2 % (36.0-47.0) Mean Corpuscular Volume 90 fL (79-100) 91 fL (79-100) Mean Corpuscular Hemoglobin 29 pg (25-35) 30 pg (25-35) Mean Corpuscular Hemoglobin Concent 32 g/dL (31-37) 33 g/dL (31-37) Red Cell Distribution Width 16.8 % (11.5-14.5) 16.9 % (11.5-14.5) Platelet Count 204 x10^3/uL (140-400) 172 x10^3/uL (140-400) Neutrophils (%) (Auto) 65 % (31-73) 58 % (31-73) Lymphocytes (%) (Auto) 17 % (24-48) 23 % (24-48) Monocytes (%) (Auto) 13 % (0-9) 13 % (0-9) Eosinophils (%) (Auto) 4 % (0-3) 5 % (0-3) Basophils (%) (Auto) 1 % (0-3) 1 % (0-3) Neutrophils # (Auto) 3.3 x10^3uL (1.8-7.7) 2.4 x10^3uL (1.8-7.7) Lymphocytes # (Auto) 0.9 x10^3/uL (1.0-4.8) 0.9 x10^3/uL (1.0-4.8) Monocytes # (Auto) 0.6 x10^3/uL (0.0-1.1) 0.5 x10^3/uL (0.0-1.1) Eosinophils # (Auto) 0.2 x10^3/uL (0.0-0.7) 0.2 x10^3/uL (0.0-0.7) Basophils # (Auto) 0.0 x10^3/uL (0.0-0.2) 0.0 x10^3/uL (0.0-0.2) Urine Collection Type U cath Urine Color Yellow Urine Clarity Clear Urine pH 7.5 Urine Specific [place] 1.020 Urine Protein 100 mg/dL (NEG-TRACE) Urine Glucose (UA) Negative mg/dL (NEG) Urine Ketones (Stick) Negative mg/dL (NEG) Urine Blood Large (NEG) Urine Nitrite Negative (NEG) Urine Bilirubin Negative (NEG) Urine Urobilinogen Dipstick 1.0 mg/dL (0.2 mg/dL) Urine Leukocyte Esterase Trace (NEG) Urine RBC >40 /HPF (0-2) Urine WBC 0 /HPF (0-4) Urine Squamous Epithelial Cells Few /LPF Urine Bacteria 0 /HPF (0-FEW) Urine Hyaline Casts Moderate /HPF Urine Mucus Slight /LPF Sodium Level 137 mmol/L (136-145) 143 mmol/L (136-145) Potassium Level 4.7 mmol/L (3.5-5.1) 4.2 mmol/L (3.5-5.1) Chloride Level 99 mmol/L (98-107) 107 mmol/L (98-107) Carbon Dioxide Level 32 mmol/L (21-32) 25 mmol/L (21-32) Anion Gap 6 (6-14) 11 (6-14) Blood Urea Nitrogen 35 mg/dL (7-20) 24 mg/dL (7-20) Creatinine 1.6 mg/dL (0.6-1.0) 1.2 mg/dL (0.6-1.0) Estimated GFR (Cockcroft-Gault) 31.0 43.2 BUN/Creatinine Ratio 22 (6-20) Glucose Level 243 mg/dL (70-99) 134 mg/dL (70-99) Lactic Acid Level 1.2 mmol/L (0.4-2.0) Calcium Level 9.3 mg/dL (8.5-10.1) 8.4 mg/dL (8.5-10.1) Total Bilirubin 0.5 mg/dL (0.2-1.0) Aspartate Amino Transf (AST/SGOT) 18 U/L (15-37) Alanine Aminotransferase (ALT/SGPT) 20 U/L (14-59) Alkaline Phosphatase 90 U/L (46-116) Total Protein 8.1 g/dL (6.4-8.2) Albumin 3.7 g/dL (3.4-5.0) Albumin/Globulin Ratio 0.8 (1.0-1.7) Glucose (Fingerstick) 179 mg/dL (70-99) 134 mg/dL (70-99) RH-Ems-G-Type Natriuretic Peptide 2947 pg/mL (0-449) Test 07/25/18 11:49 07/25/18 17:25 07/25/18 21:33 07/26/18 07:35 Glucose (Fingerstick) 217 mg/dL (70-99) 227 mg/dL (70-99) 186 mg/dL (70-99) 117 mg/dL (70-99) Laboratory Tests Test 07/25/18 17:25 07/25/18 21:33 07/26/18 07:35 Glucose (Fingerstick) 227 mg/dL (70-99) 186 mg/dL (70-99) 117 mg/dL (70-99) Microbiology 07/24/18 Blood Culture - Preliminary, Resulted NO GROWTH AFTER 1 DAY Medications Current Medications Sodium Chloride 1,000 ml @ 1,000 mls/hr 1X ONCE IV Last administered on 07/24/18at 12:37; Start 07/24/18 at 12:15; Stop 07/24/18 at 13:14; Status DC Fentanyl Citrate (Fentanyl 2ml Vial) 50 mcg 1X ONCE IV Last administered on 07/24/18at 13:05; Start 07/24/18 at 13:00; Stop 07/24/18 at 13:04; Status DC Meropenem 1 gm/ Sodium Chloride 100 ml @ 200 mls/hr Q12H IV Last administered on 07/26/18at 00:56; Start 07/24/18 at 14:00 Ondansetron HCl (Zofran) 4 mg PRN Q8HRS PRN IV NAUSEA/VOMITING; Start 07/24/18 at 14:30; Stop 07/25/18 at 14:29; Status DC Fentanyl Citrate (Fentanyl 2ml Vial) 50 mcg PRN Q1HR PRN IV PAIN; Start 07/24/18 at 14:30; Stop 07/25/18 at 14:29; Status DC Sodium Chloride 1,000 ml @ 75 mls/hr [id number] IV Last administered on 07/24/18at 22:20; Start 07/24/18 at 14:20; Stop 07/25/18 at 14:19; Status DC Aspirin (Ecotrin) 81 mg DAILY PO Last administered on 07/26/18at 10:33; Start 07/25/18 at 09:00 Furosemide (Lasix) 40 mg DAILY PO Last administered on 07/26/18at 10:27; Start 07/25/18 at 09:00 Lisinopril (Prinivil) 20 mg DAILY PO Last administered on 07/26/18 10:27; Start 07/25/18 at 09:00 Potassium Chloride (Klor-Con) 10 meq DAILY PO Last administered on 07/26/18 10:27; Start 07/25/18 at 09:00 Citalopram Hydrobromide (CeleXA) 40 mg DAILY PO ; Start 07/25/18 at 09:00; Stop 07/25/18 at 09:00; Status DC Donepezil HCl (Aricept) 10 mg DAILY PO Last administered on 07/26/18 10:30; Start 07/25/18 at 09:00 Memantine (Namenda) 10 mg BID PO Last administered on 07/26/18 10:26; Start 07/24/18 at 21:00 Fish Oil (Fish Oil) 1,000 mg BID PO Last administered on 07/26/18 10:26; Start 07/24/18 at 21:00 Pioglitazone HCl (Actos) 15 mg DAILY PO Last administered on 07/26/18 10:; Start 07/25/18 at 09:00 Quetiapine Fumarate (SEROquel) 12.5 mg BID PO Last administered on 07/26/18 10:26; Start 07/24/18 at 21:00 Famotidine (Pepcid) 20 mg DAILY PO Last administered on 07/26/18 10:27; Start 07/25/18 at 09:00 Simvastatin (Zocor) 20 mg HS PO Last administered on 07/25/18at 20:40; Start 07/24/18 at 21:00 Insulin Human Lispro (HumaLOG) 0-7 UNITS TIDWMEALS SQ Last administered on 07/25/18 18:30; Start 07/25/18 at 08:00 Dextrose (Dextrose 50%-Water Syringe) 12.5 gm PRN Q15MIN PRN IV SEE COMMENTS; Start 07/24/18 at 20:45 Citalopram Hydrobromide (CeleXA) 40 mg HS PO Last administered on 07/26/18 10:26; Start 07/24/18 at 22:30 Lactobacillus Rhamnosus (Culturelle) 1 cap BID PO Last administered on 07/26/18 10:26; Start 07/25/18 at 21:00 Active Scripts Active Tylenol With Codeine #3 Tablet (Acetaminophen/Codeine Phosphate) 1 Each Tablet 1 Tab PO PRN Q6HRS PRN Reported Aspirin Ec (Aspirin) 81 Mg Tablet. 81 Tab PO DAILY Citalopram Hbr (Citalopram Hydrobromide) 40 Mg Tablet 1 Tab PO DAILY Simvastatin 20 Mg Tablet 1 Tab PO QHS Potassium Chloride 10 Meq Tab.sr.24h 10 Meq PO DAILY [place] 3 Fish Oil Softgel ([place]-3 Fatty Acids/Fish Oil) 1 Each Capsule.dr 1 Each PO BID Furosemide 20 Mg Tablet 2 Tab PO DAILY Seroquel (Quetiapine Fumarate) 25 Mg Tablet 0.5 Tab PO BID Namenda (Memantine Hcl) 10 Mg Tablet 1 Tab PO BID Ranitidine Hcl 300 Mg Capsule 1 Cap PO DAILY Donepezil Hcl 10 Mg Tablet 10 Tab PO DAILY Lisinopril 20 Mg Tablet 1 Tab PO DAILY Actos (Pioglitazone Hcl) 15 Mg Tablet 1 Tab PO DAILY Vitals/I & O Vital Sign - Last 24 Hours 07/25/18 07/25/18 07/25/18 07/25/18 15:00 19:00 20:00 22:43 Temp 98.1 98.0 98.3 98.1 98.0 98.3 Pulse 76 74 77 Resp 18 18 18 B/P (MAP) 111/50 (70) 132/58 (82) 142/54 (83) Pulse Ox 97 97 96 O2 Delivery Room Air Room Air Room Air Room Air 07/26/18 07/26/18 07/26/18 07/26/18 03:07 07:00 09:00 10:27 Temp 98.5 98.9 98.5 98.9 Pulse 84 75 75 Resp 16 18 B/P (MAP) 146/54 (84) 121/49 (73) 121/49 Pulse Ox 95 99 O2 Delivery Room Air Room Air Room Air Intake and Output 07/25/18 07/25/18 07/26/18 14:59 22:59 06:59 Intake Total 200 ml 420 ml 200 ml Balance 200 ml 420 ml 200 ml MALKA NAYAK MD July 26, 2018 11:57
--- NOTE | 2018-07-26 12:19 | PDOC ---
Infectious Disease Note Subjective Subjective pt is awake, back to her baseline ROS ROS no n/v/d/sob Vital Sign Vital Signs Vital Signs Date Time Temp Pulse Resp B/P (MAP) Pulse Ox O2 Delivery O2 Flow Rate FiO2 07/26/18 10:27 75 121/49 07/26/18 09:00 Room Air 07/26/18 07:00 98.9 18 99 98.9 Physical Exam PHYSICAL EXAM GENERAL: Awake female, not in distress. VITAL SIGNS: Stable, afebrile. HEENT: NAD. NECK: Supple, no JVP, no lymphadenopathy. LUNGS: Clear. HEART: S1, S2 regular. ABDOMEN: Benign. EXTREMITIES: No edema, cyanosis. SKIN: Unremarkable. NEUROLOGIC: Alert, awake, does move all the extremities, back to her baseline per daughter Labs Lab Laboratory Tests Test 07/25/18 17:25 07/25/18 21:33 07/26/18 07:35 07/26/18 12:05 Glucose (Fingerstick) 227 mg/dL (70-99) 186 mg/dL (70-99) 117 mg/dL (70-99) 187 mg/dL (70-99) Micro Microbiology 07/24/18 Blood Culture - Preliminary, Resulted NO GROWTH AFTER 1 DAY Objective Assessment ? UTI Encephalopathy Dementia Dehydration Plan Plan of Care fluids d/c antibiotics soon d/w dr Hopson d/w daughter LULI CABRERA MD July 26, 2018 12:19
--- NOTE | 2018-07-26 12:56 | PDOC ---
PROGRESS NOTES Subjective Subjective Patient sitting up in recliner. Intermittently sleeping and interacting. Recognized I am her doctor but asked daughter my name. She denies any pain or problem. Asked if she was interested in going home soon and responded yes. Then asked her daughter "where do I live?" Conversations are in german as patient does not speak [place]. PT was in this AM to evaluate patient but daughter notes that patient slep through most of her evaluation. She notes that her Mother's usual schedule is sleeping until 11-noon every AM. she is awake during the night most nights. Despite family's attempts to turn her schedule around, they have not been successful so someone in household stays up to keep an eye on her during the night, usually her . He is also in room today as he spent the night last night with her in addition to her eldest daughter spending the night. they report that she was up during most of the night and that she went to bathroom, walking with assistance, 3 times. Had a very good day yesterday with lots of her family visiting her. Was alert and participated in conversation with family. While typing note, daughter requested I return to room. Patient on toilet and was dry heaving minimally without any emesis. When asked if she felt nauseaous she said yes. Episode lasted no more than 1 min. Patient felt better and daughter helped her back to the bed. Eating lunch now without any problem. Objective Objective Vital Signs Date Time Temp Pulse Resp B/P (MAP) Pulse Ox O2 Delivery O2 Flow Rate FiO2 07/26/18 10:27 75 121/49 07/26/18 09:00 Room Air 07/26/18 07:00 98.9 18 99 98.9 Intake and Output 07/26/18 07:00 Intake Total 820 ml Balance 820 ml Intake Oral 820 ml # Voids 4 # Bowel Movements 1 Physical Exam Physical Exam NAD. Face is not as puffy as it was last 2 days- back to normal.Lungs are clear with decreased BS at base. Heart- reg, S1S2. Abdomen soft, nontender, BS positive- BM reported in nursing documentation. Back- no CVA tenderness. Ext- no c,c,or e. Not oriented to place or time. At this time she does seem to recognize her family and me. Has had 4 doses of antibiotic IV. Blood Culture negative to date. COMMENT discussion with family regarding discharge. Prefer to take her home and not transfer to rehab or jail to improve gait and strength. Would like Home Health services to include physical therapy. also discussed Hospice/ Palliative care services for the future. Family will further explore this. Open to idea of caregiver to help with bathing 3 times a week. Oven Tender walked in during course of discussion [facility] minutes discussing progression of Alzheimers, what to expect, and possible services available in community for family support. Addressed and daughter's concerns Diagnosis DIAGNOSIS 1. Encephalopathy resolved- most likely due to dehydration which has also resolved. 2. Dehydration resolved 3. UTI resolved 4. Alzheimers disease- returning to her baseline 5. Acute renal insufficiency secondary to dehydration is improving, superimposed on chronic renal disease 6. Diabetes Type 2 control improving. 7. Hypertension controlled 8. CHF-stable 9. Mild cardiomegaly 10. gait instability Problems: (1) Gait instability Other Chest Xray shows small bilateral pleural effusions otherwise no acute change. compared to film in 2015 she now has mild cardiomegaly. Assessment Assessment Problems Medical Problems: (1) Altered level of consciousness Status: Acute (2) Urinary tract infection Status: Acute Plan Plan of Care Patient will complete 6 doses of the Meropenam 1 gm IV q 12 hours. Will be discharged in AM with Home Health services including Physical Therapy. Comment Review of Relevant I have reviewed the following items ld (where applicable) has been applied. Labs Laboratory Tests Test 07/24/18 20:32 07/25/18 07:13 07/25/18 07:55 07/25/18 11:49 Glucose (Fingerstick) 179 mg/dL (70-99) 134 mg/dL (70-99) 217 mg/dL (70-99) White Blood Count 4.0 x10^3/uL (4.0-11.0) Red Blood Count 3.21 x10^6/uL (3.50-5.40) Hemoglobin 9.6 g/dL (12.0-15.5) Hematocrit 29.2 % (36.0-47.0) Mean Corpuscular Volume 91 fL (79-100) Mean Corpuscular Hemoglobin 30 pg (25-35) Mean Corpuscular Hemoglobin Concent 33 g/dL (31-37) Red Cell Distribution Width 16.9 % (11.5-14.5) Platelet Count 172 x10^3/uL (140-400) Neutrophils (%) (Auto) 58 % (31-73) Lymphocytes (%) (Auto) 23 % (24-48) Monocytes (%) (Auto) 13 % (0-9) Eosinophils (%) (Auto) 5 % (0-3) Basophils (%) (Auto) 1 % (0-3) Neutrophils # (Auto) 2.4 x10^3uL (1.8-7.7) Lymphocytes # (Auto) 0.9 x10^3/uL (1.0-4.8) Monocytes # (Auto) 0.5 x10^3/uL (0.0-1.1) Eosinophils # (Auto) 0.2 x10^3/uL (0.0-0.7) Basophils # (Auto) 0.0 x10^3/uL (0.0-0.2) Sodium Level 143 mmol/L (136-145) Potassium Level 4.2 mmol/L (3.5-5.1) Chloride Level 107 mmol/L (98-107) Carbon Dioxide Level 25 mmol/L (21-32) Anion Gap 11 (6-14) Blood Urea Nitrogen 24 mg/dL (7-20) Creatinine 1.2 mg/dL (0.6-1.0) Estimated GFR (Cockcroft-Gault) 43.2 Glucose Level 134 mg/dL (70-99) Calcium Level 8.4 mg/dL (8.5-10.1) [id number]-Type Natriuretic Peptide 2947 pg/mL (0-449) Test 07/25/18 17:25 07/25/18 21:33 07/26/18 07:35 07/26/18 12:05 Glucose (Fingerstick) 227 mg/dL (70-99) 186 mg/dL (70-99) 117 mg/dL (70-99) 187 mg/dL (70-99) Laboratory Tests Test 07/25/18 17:25 07/25/18 21:33 07/26/18 07:35 07/26/18 12:05 Glucose (Fingerstick) 227 mg/dL (70-99) 186 mg/dL (70-99) 117 mg/dL (70-99) 187 mg/dL (70-99) Microbiology 07/24/18 Blood Culture - Preliminary, Resulted NO GROWTH AFTER 1 DAY Medications Current Medications Sodium Chloride 1,000 ml @ 1,000 mls/hr 1X ONCE IV Last administered on 07/24/18at 12:37; Start 07/24/18 at 12:15; Stop 07/24/18 at 13:14; Status DC Fentanyl Citrate (Fentanyl 2ml Vial) 50 mcg 1X ONCE IV Last administered on 07/24/18at 13:05; Start 07/24/18 at 13:00; Stop 07/24/18 at 13:04; Status DC Meropenem 1 gm/ Sodium Chloride 100 ml @ 200 mls/hr Q12H IV Last administered on 07/26/18at 00:56; Start 07/24/18 at 14:00 Ondansetron HCl (Zofran) 4 mg PRN Q8HRS PRN IV NAUSEA/VOMITING; Start 07/24/18 at 14:30; Stop 07/25/18 at 14:29; Status DC Fentanyl Citrate (Fentanyl 2ml Vial) 50 mcg PRN Q1HR PRN IV PAIN; Start 07/24/18 at 14:30; Stop 07/25/18 at 14:29; Status DC Sodium Chloride 1,000 ml @ 75 mls/hr [id number] IV Last administered on 07/24/18at 22:20; Start 07/24/18 at 14:20; Stop 07/25/18 at 14:19; Status DC Aspirin (Ecotrin) 81 mg DAILY PO Last administered on 07/26/18 10:33; Start 07/25/18 at 09:00 Furosemide (Lasix) 40 mg DAILY PO Last administered on 07/26/18 10:27; Start 07/25/18 at 09:00 Lisinopril (Prinivil) 20 mg DAILY PO Last administered on 07/26/18 10:27; Start 07/25/18 at 09:00 Potassium Chloride (Klor-Con) 10 meq DAILY PO Last administered on 07/26/18at 10:27; Start 07/25/18 at 09:00 Citalopram Hydrobromide (CeleXA) 40 mg DAILY PO ; Start 07/25/18 at 09:00; Stop 07/25/18 at 09:00; Status DC Donepezil HCl (Aricept) 10 mg DAILY PO Last administered on 07/26/18 10:30; Start 07/25/18 at 09:00 Memantine (Namenda) 10 mg BID PO Last administered on 07/26/18 10:26; Start 07/24/18 at 21:00 Fish Oil (Fish Oil) 1,000 mg BID PO Last administered on 07/26/18 10:26; Start 07/24/18 at 21:00 Pioglitazone HCl (Actos) 15 mg DAILY PO Last administered on 07/26/18 10:26; Start 07/25/18 at 09:00 Quetiapine Fumarate (SEROquel) 12.5 mg BID PO Last administered on 07/26/18 10: 26; Start 07/24/18 at 21:00 Famotidine (Pepcid) 20 mg DAILY PO Last administered on 07/26/18 10:27; Start 07/25/18 at 09:00 Simvastatin (Zocor) 20 mg HS PO Last administered on 07/25/18 20:40; Start 07/24/18 at 21:00 Insulin Human Lispro (HumaLOG) 0-7 UNITS TIDWMEALS SQ Last administered on 07/25/18 18:30; Start 07/25/18 at 08:00 Dextrose (Dextrose 50%-Water Syringe) 12.5 gm PRN Q15MIN PRN IV SEE COMMENTS; Start 07/24/18 at 20:45 Citalopram Hydrobromide (CeleXA) 40 mg HS PO Last administered on 07/26/18 10:26; Start 07/24/18 at 22:30 Lactobacillus Rhamnosus (Culturelle) 1 cap BID PO Last administered on 07/26/18 10:26; Start 07/25/18 at 21:00 Active Scripts Active Tylenol With Codeine #3 Tablet (Acetaminophen/Codeine Phosphate) 1 Each Tablet 1 Tab PO PRN Q6HRS PRN Reported Aspirin Ec (Aspirin) 81 Mg Tablet.dr 81 Tab PO DAILY Citalopram Hbr (Citalopram Hydrobromide) 40 Mg Tablet 1 Tab PO DAILY Simvastatin 20 Mg Tablet 1 Tab PO QHS Potassium Chloride 10 Meq Tab.sr.24h 10 Meq PO DAILY [place] 3 Fish Oil Softgel ([place]-3 Fatty Acids/Fish Oil) 1 Each Capsule.dr 1 Each PO BID Furosemide 20 Mg Tablet 2 Tab PO DAILY Seroquel (Quetiapine Fumarate) 25 Mg Tablet 0.5 Tab PO BID Namenda (Memantine Hcl) 10 Mg Tablet 1 Tab PO BID Ranitidine Hcl 300 Mg Capsule 1 Cap PO DAILY Donepezil Hcl 10 Mg Tablet 10 Tab PO DAILY Lisinopril 20 Mg Tablet 1 Tab PO DAILY Actos (Pioglitazone Hcl) 15 Mg Tablet 1 Tab PO DAILY Vitals/I & O Vital Sign - Last 24 Hours 07/25/18 07/25/18 07/25/18 07/25/18 15:00 19:00 20:00 22:43 Temp 98.1 98.0 98.3 98.1 98.0 98.3 Pulse 76 74 77 Resp 18 18 18 B/P (MAP) 111/50 (70) 132/58 (82) 142/54 (83) Pulse Ox 97 97 96 O2 Delivery Room Air Room Air Room Air Room Air 07/26/18 07/26/18 07/26/18 07/26/18 03:07 07:00 09:00 10:27 Temp 98.5 98.9 98.5 98.9 Pulse 84 75 75 Resp 16 18 B/P (MAP) 146/54 (84) 121/49 (73) 121/49 Pulse Ox 95 99 O2 Delivery Room Air Room Air Room Air Intake and Output 07/25/18 07/25/18 07/26/18 15:00 23:00 07:00 Intake Total 200 ml 420 ml 200 ml Balance 200 ml 420 ml 200 ml Images Chest Xray shows smal bilateral pleural effusions otherwise no acute change. compared to film in 2014 she now has mild cardiomegaly. Nutrition Consultation Malnutrition Findings: Weight Status: Appropriate CHAS STACY MD July 26, 2018 12:56
[2018-07-26 15:00] VITALS: BP 129/50
--- NOTE | 2018-07-26 15:34 | NUR ---
SW following pt for anticipated dc needs. Chart reviewed and discussed with RN. Pt lives at home with family. Spoke with pt's daughter and pt's PCP in room regarding PT/OT recommendation for SNU. Daughter and Pt's PCP reported pt will be fine going home with [facility]. Ruth from [facility] notified.
--- NOTE | 2018-07-26 18:46 | NUR ---
LAI IS MORE AWAKE AND ALERT. SHE HAS SEVERAL FAMILY MEMBERS IN ROOM. SHE HAD A SHOWER TODAY AND IS FEELING BETTER.
[2018-07-26 19:00] VITALS: BP 143/51
[2018-07-26] MEDS: SIMVASTATIN 20 MG TABLET PO SCH (20:40)
[2018-07-26 23:00] VITALS: BP 136/58
[2018-07-27] MEDS: MEROPENEM 1 GM in IV NORMAL SALINE 100ML 100 ML IV SCH (02:00)
[2018-07-27 03:00] VITALS: BP 126/52
[2018-07-27 07:00] VITALS: BP 122/67
[2018-07-27] MEDS: PIOGLITAZONE 15 MG TABLET. PO SCH (09:45)
[2018-07-27] MEDS: POTASSIUM CHLORIDE 10 MEQ TABLET.ER. PO SCH (09:46)
[2018-07-27] MEDS: FAMOTIDINE 20 MG TABLET. PO SCH (09:47)
[2018-07-27] MEDS: LACTOBACILLUS RHAMNOSUS GG 1 CAPSULE. PO SCH (09:48)
[2018-07-27] MEDS: DONEPEZIL HCL 10 MG TABLET. PO SCH (09:48)
[2018-07-27] MEDS: MEMANTINE 10 MG TABLET. PO SCH (09:48)
[2018-07-27] MEDS: QUEtiapine 25 MG TABLET. PO SCH (09:48)
[2018-07-27] MEDS: OMEGA-3 FATTY ACIDS/FISH OIL 1,000 MG CAPSULE. PO SCH (09:49)
[2018-07-27] MEDS: FUROSEMIDE 40 MG TABLET. PO SCH (09:49)
[2018-07-27] MEDS: LISINOPRIL 20 MG TABLET PO SCH (09:49)
[2018-07-27] MEDS: ASPIRIN ENTERIC COATED 81 MG TABLET.DR. PO SCH (09:50)
--- NOTE | 2018-07-27 10:51 | PDOC ---
Infectious Disease Note Subjective Subjective pt is awake, back to her baseline ROS ROS no complaints Vital Sign Vital Signs Vital Signs Date Time Temp Pulse Resp B/P (MAP) Pulse Ox O2 Delivery O2 Flow Rate FiO2 07/27/18 09:49 75 122/67 07/27/18 07:00 98.7 16 98 Room Air 98.7 Physical Exam PHYSICAL EXAM GENERAL: Awake female, not in distress. VITAL SIGNS: Stable, afebrile. HEENT: NAD. NECK: Supple, no JVP, no lymphadenopathy. LUNGS: Clear. HEART: S1, S2 regular. ABDOMEN: Benign. EXTREMITIES: No edema, cyanosis. SKIN: Unremarkable. NEUROLOGIC: Alert, awake, does move all the extremities, back to her baseline per daughter Labs Lab Laboratory Tests Test 07/26/18 12:05 07/26/18 17:12 07/26/18 21:16 07/27/18 08:04 Glucose (Fingerstick) 187 mg/dL (70-99) 120 mg/dL (70-99) 308 mg/dL (70-99) 116 mg/dL (70-99) Micro Microbiology 07/24/18 Blood Culture - Preliminary, Resulted NO GROWTH AFTER 1 DAY Objective Assessment ? UTI,, contamination Encephalopathy Dementia Dehydration Plan Plan of Care fluids d/c antibiotics d/c home off antibiotics ok d/w daughter LULI CABRERA MD July 27, 2018 10:51
[2018-07-27 11:00] VITALS: BP 122/54
--- NOTE | 2018-07-27 13:50 | NUR ---
Pt was discharged to home with at 1300 today in stable condition with all personal belongings after reviewing all pertinent information including education, medications, follow up, and at home care. Pt information faxed to [facility] who will call pt at home in the AM, pt and family is aware. Pt was escorted via WC and accompanied by family and staff to the main exit where her daughter drove her home.
--- NOTE | 2018-08-21 09:13 | PDOC3 ---
Discharge Summary Visit Information Final Diagnosis Problems Medical Problems: (1) Altered level of consciousness Status: Acute (2) Urinary tract infection Status: Acute Brief Hospital Course Allergies Allergies Coded Allergies Type Severity Reaction Last Updated Verified No Known Drug Allergies 12/10/17 No Brief Hospital Course Ms. Zhao is a 78 old [sex] who presented with [ ] Discharge Information Scheduled Aspirin (Aspirin Ec) 81 Mg Tablet.dr, 81 TAB PO DAILY for antiplatelet, #30 Ref 3 (Reported) Entered as Reported by: KHOA JACOB on 07/24/181656 Last Taken: 81 on 07/23/182199 Last Action: Continued on 07/24/181927 by Selma Maldonado Citalopram Hydrobromide (Citalopram Hbr) 40 Mg Tablet, 1 TAB PO DAILY for depression, #90 Ref 1 (Reported) Entered as Reported by: KHOA JACOB on 07/24/181655 Last Taken: 40 on 07/23/182199 Last Action: Converted on 07/24/181927 by Selma Maldonado Donepezil Hcl (Donepezil Hcl) 10 Mg Tablet, 10 TAB PO DAILY for dementia, #90 Ref 1 (Reported) Entered as Reported by: KHOA JACOB on 07/24/181641 Last Taken: 10 on 07/23/18 1000 Last Action: Converted on 07/24/181927 by Selma Maldonado Furosemide (Furosemide) 20 Mg Tablet, 2 TAB PO DAILY for HTN, #90 Ref 1 (Reported) Entered as Reported by: KHOA JACOB on 07/24/181648 Last Taken: 20 on 07/23/18 1000 Last Action: Continued on 07/24/181927 by Selma Maldonado Lisinopril (Lisinopril) 20 Mg Tablet, 1 TAB PO DAILY for hypertension, #30 Ref 5 (Reported) Entered as Reported by: KHOA JACOB on 07/24/181640 Last Taken: 20 on 07/23/18 1000 Last Action: Continued on 07/24/181927 by Selma Maldonado Memantine Hcl (Namenda) 10 Mg Tablet, 1 TAB PO BID for dementia, #180 Ref 1 (Reported) Entered as Reported by: KHOA JACOB on 07/24/181644 Last Taken: 10 on 4/28/19 1000 Last Action: Converted on 07/24/181927 by Selma Maldonado [place]-3 Fatty Acids/Fish Oil ([place] 3 Fish Oil Softgel) 1 Each Capsule.dr, 1 EACH PO BID for supplement, (Reported) Entered as Reported by: KHOA JACOB on 07/24/181650 Last Taken: 1 cap BID on 07/23/182199 Last Action: Converted on 07/24/181927 by Selma Maldonado Pioglitazone Hcl (Actos) 15 Mg Tablet, 1 TAB PO DAILY for diabetes, #30 Ref 5 (Reported) Entered as Reported by: KHOA JACOB on 07/24/181639 Last Taken: 45 on 07/23/18999 Last Action: Converted on 07/24/181927 by Selma Maldonado Potassium Chloride (Potassium Chloride) 10 Meq Tab.sr.24h, 10 MEQ PO DAILY for replacement, (Reported) Entered as Reported by: KHOA JACOB on 07/24/181653 Last Taken: 10 on 07/23/18999 Last Action: Continued on 07/24/181927 by Selma Maldonado Quetiapine Fumarate (Seroquel) 25 Mg Tablet, 0.5 TAB PO BID for hallucinations, #30 Ref 2 (Reported) Entered as Reported by: KHOA JACOB on 07/24/181646 Last Taken: 25 on 07/23/182199 Last Action: Converted on 07/24/181927 by Selma Maldonado Ranitidine Hcl (Ranitidine Hcl) 300 Mg Capsule, 1 CAP PO DAILY for GI prophylaxis, #30 Ref 3 (Reported) Entered as Reported by: KHOA JACOB on 07/24/181642 Last Taken: 300 on 07/23/18999 Last Action: Converted on 07/24/181927 by Selma Maldonado Simvastatin (Simvastatin) 20 Mg Tablet, 1 TAB PO QHS for hypercholesterolemia, #30 Ref 5 (Reported) Entered as Reported by: KHOA JACOB on 07/24/181653 Last Taken: 20 on 07/23/182199 Last Action: Converted on 07/24/181927 by CHAS Davis MD August 21, 2018 09:13
--- NOTE | 2018-08-21 09:17 | PDOC3 ---
Discharge Summary Visit Information Date of Admission: Jul 24, 2018 Final Diagnosis Problems Medical Problems: (1) Altered level of consciousness Status: Acute (2) Urinary tract infection Status: Acute Brief Hospital Course Allergies Allergies Coded Allergies Type Severity Reaction Last Updated Verified No Known Drug Allergies 12/10/17 No Brief Hospital Course Ms. Zhao is a 78 old [sex] who presented with [ ] Discharge Information Scheduled Aspirin (Aspirin Ec) 81 Mg Tablet., 81 TAB PO DAILY for antiplatelet, #30 Ref 3 (Reported) Entered as Reported by: KHOA JACOB on 07/24/181656 Last Taken: 81 on 07/23/182199 Last Action: Continued on 07/24/181927 by Selma Maldonado Citalopram Hydrobromide (Citalopram Hbr) 40 Mg Tablet, 1 TAB PO DAILY for depression, #90 Ref 1 (Reported) Entered as Reported by: KHOA JACOB on 07/24/181655 Last Taken: 40 on 07/23/182199 Last Action: Converted on 07/24/181927 by Selma Maldonado Donepezil Hcl (Donepezil Hcl) 10 Mg Tablet, 10 TAB PO DAILY for dementia, #90 Ref 1 (Reported) Entered as Reported by: KHOA JACOB on 07/24/181641 Last Taken: 10 on 07/23/18 1000 Last Action: Converted on 07/24/181927 by Selma Maldonado Furosemide (Furosemide) 20 Mg Tablet, 2 TAB PO DAILY for HTN, #90 Ref 1 (Reported) Entered as Reported by: KHOA JACOB on 07/24/181648 Last Taken: 20 on 07/23/18 1000 Last Action: Continued on 07/24/181927 by Selma Maldonado Lisinopril (Lisinopril) 20 Mg Tablet, 1 TAB PO DAILY for hypertension, #30 Ref 5 (Reported) Entered as Reported by: KHOA JACOB on 07/24/181640 Last Taken: 20 on 07/23/18 1000 Last Action: Continued on 07/24/181927 by Selma Maldonado Memantine Hcl (Namenda) 10 Mg Tablet, 1 TAB PO BID for dementia, #180 Ref 1 (Reported) Entered as Reported by: KHOA JACOB on 07/24/181644 Last Taken: 10 on 07/23/18 1000 Last Action: Converted on 07/24/181927 by Selma Maldonado [place]-3 Fatty Acids/Fish Oil ([place] 3 Fish Oil Softgel) 1 Each Capsule.dr, 1 EACH PO BID for supplement, (Reported) Entered as Reported by: KHOA JACOB on 07/24/181650 Last Taken: 1 cap BID on 07/23/182199 Last Action: Converted on 07/24/181927 by Selma Maldonado Pioglitazone Hcl (Actos) 15 Mg Tablet, 1 TAB PO DAILY for diabetes, #30 Ref 5 (Reported) Entered as Reported by: KHOA JACOB on 07/24/181639 Last Taken: 45 on 07/23/18999 Last Action: Converted on 07/24/181927 by Selma Maldonado Potassium Chloride (Potassium Chloride) 10 Meq Tab.sr.24h, 10 MEQ PO DAILY for replacement, (Reported) Entered as Reported by: KHOA JACOB on 07/24/181653 Last Taken: 10 on 07/23/18999 Last Action: Continued on 07/24/181927 by Selma Maldonado Quetiapine Fumarate (Seroquel) 25 Mg Tablet, 0.5 TAB PO BID for hallucinations, #30 Ref 2 (Reported) Entered as Reported by: KHOA JACOB on 07/24/181646 Last Taken: 25 on 07/23/182199 Last Action: Converted on 07/24/181927 by Selma Maldonado Ranitidine Hcl (Ranitidine Hcl) 300 Mg Capsule, 1 CAP PO DAILY for GI prophylaxis, #30 Ref 3 (Reported) Entered as Reported by: KHOA JACOB on 07/24/181642 Last Taken: 300 on 07/23/18999 Last Action: Converted on 07/24/181927 by Selma Maldonado Simvastatin (Simvastatin) 20 Mg Tablet, 1 TAB PO QHS for hypercholesterolemia, #30 Ref 5 (Reported) Entered as Reported by: KHOA JACOB on 07/24/181653 Last Taken: 20 on 07/23/182199 Last Action: Converted on 07/24/181927 by CHAS Davis MD August 21, 2018 09:17
--- NOTE | 2018-08-21 09:26 | PDOC3 ---
Discharge Summary Visit Information Date of Admission: Jul 24, 2018 Date of Discharge: July 27, 2018 Admitting Diagnosis: CHANGE IN MENTAL STATUS/ENCEPHALOPATHY SECONDARY TO UTI Admitting Diagnosis Comment: PATIENT WAS ALSO DEHYDRATED ON ADMISSION AND HAD ACUTE RENAL INSUFFICIENCY DUE TO BOTH DEHYDRATION AND UTI. She suffers from dementia and diabetes mellitus typw 2 as well. Final Diagnosis Problems Medical Problems: (1) Altered level of consciousness Status: Acute - improved with hydration and appropriate antibiotic treatment (2) Urinary tract infection Status: Acute and resolved with therapy (3) DEHYDRATION RESOLVED (4) RENAL INSUFFICIENCY IMPROVED (5) DM TYPE 2 (6) DEMENTIA BACK TO BASELINE Brief Hospital Course Allergies Allergies Coded Allergies Type Severity Reaction Last Updated Verified No Known Drug Allergies 12/10/17 No Vital Signs stable, afebrile Lab Results Noted in brief summary below. Brief Hospital Course Ms. Zhao is an 78 old [female] who presented with change in mental status. PATIENT HAD BEEN TREATED OUTPATIENT WITH ROCEPHIN IM X 3 DAYS ONLY TO GET URINE CULTURE REPORT INDICATING E.COLI GREATER THAN 100.000 ORGANISMS GROWING R ESISTANT TO ROCEPHIN. DURING THIS TIME PATIENT DECOMPENSATED AND THUS WAS ADMITTED FOR APPROPRIATE ANTIBIOTIC MEROPENEM 1 gm GIVEN IV. SHE WAS ALSO HYDRATED. CONSULTS WERE OBTAINED WITH NEUROLOGY DR. DOAN AND INFECTIOUS DISEASE DR. CABRERA. CT OF HER HEAD SHOWED NO NEW FINDINGS. ONCE HYDRATED SHE WAS NOTED TO HAVE A MILD ANEMIA AND HER CREATININE IMPROVED. PATIENT SLOWLY IM PROVED IN HER MENTATION AND RETURNED TO HER BASELINE DEMENTED STATE. SHE STARTED PHYSICAL THERAPY IN HOSPITAL AND THIS WILL BE CONTINUED AT HOME DUE TO MUSCLE WEAKNESS FROM DISUSE FOR PAST WEEK AND INCREASED RISK OF FALLING. HER BLOOD CULTURES WERE NEGATIVE AT 5 DAYS. HER STRAIGHT CATHED URINE CULTURE IN HOSPITAL GREW E. FAECILIS AT GREATER THAN 100,000 ORGANISMS AND A STAPH SPECIES RESISTANT TO ALL BETA LACTAM ANTIBIOTICS. ON 07/27/2018 PATIENT WAS FELT TO BE READY FOR DISCHARGE. ] Discharge Information Condition at Discharge: Improved Follow Up: Weeks (2-3 weeks) Disposition/Orders: D/C to Home, D/C to Home w/ HH Scheduled Aspirin (Aspirin Ec) 81 Mg Tablet., 81 TAB PO DAILY for antiplatelet, #30 Ref 3 (Reported) Entered as Reported by: KHOA JACOB on 07/24/18 1657 Last Taken: 81 on 07/23/182199 Last Action: Continued on 07/24/181927 by Selma Maldonado Citalopram Hydrobromide (Citalopram Hbr) 40 Mg Tablet, 1 TAB PO DAILY for depression, #90 Ref 1 (Reported) Entered as Reported by: KHOA JACOB on 07/24/181655 Last Taken: 40 on 07/23/182199 Last Action: Converted on 07/24/181927 by Selma Maldonado Donepezil Hcl (Donepezil Hcl) 10 Mg Tablet, 10 TAB PO DAILY for dementia, #90 Ref 1 (Reported) Entered as Reported by: KHOA JACOB on 07/24/181641 Last Taken: 10 on 07/23/18 1000 Last Action: Converted on 07/24/181927 by Selma Maldonado Furosemide (Furosemide) 20 Mg Tablet, 2 TAB PO DAILY for HTN, #90 Ref 1 (Reported) Entered as Reported by: KHOA JACOB on 07/24/181648 Last Taken: 20 on 07/23/18 1000 Last Action: Continued on 07/24/181927 by Selma Maldonado Lisinopril (Lisinopril) 20 Mg Tablet, 1 TAB PO DAILY for hypertension, #30 Ref 5 (Reported) Entered as Reported by: KHOA JACOB on 07/24/181640 Last Taken: 20 on 07/23/18 1000 Last Action: Continued on 07/24/181927 by Selma Maldonado Memantine Hcl (Namenda) 10 Mg Tablet, 1 TAB PO BID for dementia, #180 Ref 1 (Reported) Entered as Reported by: KHOA JACOB on 07/24/181644 Last Taken: 10 on 07/23/18 1000 Last Action: Converted on 07/24/181927 by Selma Maldonado [place]-3 Fatty Acids/Fish Oil ([place] 3 Fish Oil Softgel) 1 Each Capsule.dr, 1 EACH PO BID for supplement, (Reported) Entered as Reported by: KHOA JACOB on 07/24/181650 Last Taken: 1 cap BID on 07/23/180 Last Action: Converted on 07/24/181927 by Selma Maldonado Pioglitazone Hcl (Actos) 15 Mg Tablet, 1 TAB PO DAILY for diabetes, #30 Ref 5 (Reported) Entered as Reported by: KHOA JACOB on 07/24/18 1640 Last Taken: 45 on 07/23/18 1000 Last Action: Converted on 07/24/181927 by Selma Maldonado Potassium Chloride (Potassium Chloride) 10 Meq Tab.sr.24h, 10 MEQ PO DAILY for replacement, (Reported) Entered as Reported by: KHOA JACOB on 07/24/181653 Last Taken: 10 on 07/23/18 1000 Last Action: Continued on 07/24/181927 by Selma Maldonado Quetiapine Fumarate (Seroquel) 25 Mg Tablet, 0.5 TAB PO BID for hallucinations, #30 Ref 2 (Reported) Entered as Reported by: KHOA JACOB on 07/24/181646 Last Taken: 25 on 07/23/182199 Last Action: Converted on 07/24/181927 by Selma Maldonado Ranitidine Hcl (Ranitidine Hcl) 300 Mg Capsule, 1 CAP PO DAILY for GI prophylaxis, #30 Ref 3 (Reported) Entered as Reported by: KHOA JACOB on 07/24/181642 Last Taken: 300 on 07/23/18 1000 Last Action: Converted on 07/24/181927 by Selma Maldonado Simvastatin (Simvastatin) 20 Mg Tablet, 1 TAB PO QHS for hypercholesterolemia, #30 Ref 5 (Reported) Entered as Reported by: KHOA JACOB on 07/24/181653 Last Taken: 20 on 07/23/182199 Last Action: Converted on 07/24/181927 by Selma Maldonado Patient Instructions Patient Instructions Patient discharged to home on her routine medications. Home health will be seeing patient for home physical therapy. She is to see me in 2-3 weeks, sooner if problems develop. CHAS STACY MD August 21, 2018 09:26
== END 2018-07-27 13:00 | disposition home health service (06) | DRG 682 ==
LOC: ER 11:56 → 6 SOUTH 14:15
PROVIDERS: ADMIT Family Medicine; ATTEND Family Medicine
DX: N17.0 Acute kidney failure with tubular necrosis (principal); G93.41 Metabolic encephalopathy; N39.0 Urinary tract infection, site not specified; E86.0 Dehydration; E11.51 Type 2 diabetes mellitus with diabetic peripheral angiopathy without gangrene; I12.9 Hypertensive chronic kidney disease with stage 1 through stage 4 chronic kidney disease, or unspecified chronic kidney disease; E11.22 Type 2 diabetes mellitus with diabetic chronic kidney disease; N18.3 Chronic kidney disease, stage 3 (moderate); E78.5 Hyperlipidemia, unspecified; E78.00 Pure hypercholesterolemia, unspecified; F02.80 Dementia in other diseases classified elsewhere, unspecified severity, without behavioral disturbance, psychotic disturbance, mood disturbance, and anxiety; F32.9 Major depressive disorder, single episode, unspecified; G30.9 Alzheimer's disease, unspecified; I10 Essential (primary) hypertension; L29.9 Pruritus, unspecified; Z82.49 Family history of ischemic heart disease and other diseases of the circulatory system; Z83.3 Family history of diabetes mellitus; Z79.4 Long term (current) use of insulin
CPT/HCPCS: 36415; 70450; 71046; 80048; 80053; 81001; 82962; 83605; 83880; 85025; 87040; 87086; 87186; 96361; 96374; J1815; J2185; J3010; J7030; 97530; 97535; 99285-25

== ENCOUNTER → 2019-02-13 | Outpatient (CLI) | payer MEDICARE ==
[~2019-02-13] MED LIST changes: +ASPI-612 PO; +CITA40TA5 PO; +DONE10TA7 PO; +FURO20TA3 PO; +LISI-334 PO; +MEMA10TA PO; +OMEG1CAP38 PO; +PIOG15TA42 PO; +POTA10TA12 PO; +QUET25TA5 PO; +RANI300C PO; +SIMV20TA18 PO
[2019-02-13 11:55] LABS: BASO % 0 % (0-3); EOS % 0 % (0-3); HEMATOCRIT 35.7 % (36.0-47.0); HEMOGLOBIN 11.8 g/dL (12.0-15.5); LYMPH # 0.3 x10^3/uL (1.0-4.8); LYMPH % 16 % (24-48); MEAN CORPUSCULAR HEMOGLOBIN 33 pg (25-35); MEAN CORPUSCULAR HGB CONC 33 g/dL (31-37); MEAN CORPUSCULAR VOLUME 98 fL (79-100); MONO % 2 % (0-9); NEUT # 1.5 x10^3/uL (1.8-7.7); NEUT % 82 % (31-73); PLATELET COUNT 153 x10^3/uL (140-400); RED BLOOD COUNT 3.64 x10^6/uL (3.50-5.40); RED CELL DISTRIBUTION WIDTH 14.7 % (11.5-14.5)
[2019-02-13 12:09] LABS: ALBUMIN 3.5 g/dL (3.4-5.0); ALBUMIN/GLOBULIN RATIO 0.8 (1.0-1.7); CALCIUM 8.7 mg/dL (8.5-10.1); CREATININE 1.9 mg/dL (0.6-1.0); GFR 25.4; POTASSIUM 4.1 mmol/L (3.5-5.1); TOTAL BILIRUBIN 1.4 mg/dL (0.2-1.0)
[2019-02-13 12:17] LABS: WHITE BLOOD COUNT 1.8 x10^3/uL (4.0-11.0)
[2019-02-13 13:19] LABS: % BANDS 20 % (0-9); % EOS 1 % (0-5); % LYMPHS 16 % (24-48); % MONOS 2 % (0-10); % SEGS 61 % (35-66); PLT ESTIMATE ADEQUATE (ADEQUATE)
[2019-02-13 13:20] LABS: ANISOCYTOSIS SLIGHT; POLYCHROMASIA SLIGHT; TOXIC VACUOLATION MOD
== END | disposition home or self-care (01) ==
LOC: SPEC 11:24
PROVIDERS: ATTEND Family Medicine
DX: I12.9 Hypertensive chronic kidney disease with stage 1 through stage 4 chronic kidney disease, or unspecified chronic kidney disease (principal); N18.9 Chronic kidney disease, unspecified; R60.9 Edema, unspecified
CPT/HCPCS: 36415; 80053; 85007; 85025; 85651